=== PATIENT | female | born 1935 | race Caucasian/White ===

== ENCOUNTER → 2022-01-24 | Outpatient (CLI) | payer OTHER ==
[~2022-01-24] MED LIST: ACID REDUCER 1150 MG; ASPI81CH; ATEN25; CELE100; CLOB.05TC; Excedrin Extra1 EACH; FISH1000; HYDCHL25; Hair, Skin & N1 EACH; LEVSOD50; LIOT25; METTREX2.5; TIMDOROPSO
[2022-01-24 18:00] LABS: BASOPHILS ABSOLUTE AUTO 0.03 K/mm3 (0.00-0.23); BASOPHILS PERCENT AUTO 0 % (0-2); EOSINOPHILS ABSOLUTE AUTO 0.21 K/mm3 (0.00-0.68); EOSINOPHILS PERCENT AUTO 3 % (0-6); Hematocrit 44.8 % (33.0-51.0); Hemoglobin 14.6 g/dL (11.5-16.0); IMMATURE GRAN ABSOLUTE AUTO 0.03 K/mm3 (0.00-0.10); IMMATURE GRAN PERCENT AUTO 0 % (0-1); LYMPHOCYTES ABSOLUTE AUTO 1.78 K/mm3 (0.84-5.20); LYMPHOCYTES PERCENT AUTO 26 % (21-46); MONOCYTES ABSOLUTE AUTO 0.55 K/mm3 (0.16-1.47); MONOCYTES PERCENT AUTO 8 % (4-13); Mean Corpuscular HGB 29.4 pg (26.0-34.0); Mean Corpuscular HGB Conc 32.6 g/dL (31.5-36.5); Mean Corpuscular Volume 90 fL (80-100); NEUTROPHILS ABSOLUTE AUTO 4.27 K/mm3 (1.96-9.15); NEUTROPHILS PERCENT AUTO 62 % (41-73); Platelet Count 315 K/mm3 (150-400); RDW Coefficient Variation 15.6 % (11.7-14.2); RDW Standard Deviation 50.5 fL (35.1-46.3); Red Blood Cell Count 4.96 M/mm3 (3.80-5.20); White Blood Cell Count 6.87 K/mm3 (4.00-11.30)
[2022-01-24 19:23] LABS: Alanine Aminotransfer (ALT/SGP 29 U/L (12-78); Albumin, Blood 3.5 g/dL (3.4-5.0); Albumin/Globulin Ratio 0.9 (0.8-1.8); Alk Phos 95 U/L (50-136); Anion Gap 8 mmol/L (6-16); Aspartate Aminotrans (AST/SGOT 23 U/L (12-37); Bilirubin, Total 0.7 mg/dL (0.1-1.0); Blood Urea Nitrogen 26 mg/dL (8-24); Bun/Creatinine Ratio 28.2 (12.0-20.0); CHOL/HDL RATIO 5.5; CO2, Blood 24 mmol/L (21-32); Calcium, Blood 9.9 mg/dL (8.5-10.1); Chloride, Blood 111 mmol/L (98-108); Cholesterol 270 mg/dL (50-200); Creatinine, Blood 0.92 mg/dL (0.40-1.00); Globulin, Blood 4.1 g/dL (2.2-4.0); Glomerular Filtration Rate 58 (60-); Glucose, Blood 103 mg/dL (70-99); HDL Cholesterol 49 mg/dL (>39); LDL/HDL RATIO 3.8; Low Density Lipoprotein Chol 184 mg/dL (0-110); Sodium, Blood 143 mmol/L (136-145); Thyroid Stimulating Hormone 0.988 uIU/mL (0.360-4.800); Total Protein, Blood 7.6 g/dL (6.4-8.2); Triglycerides 185 mg/dL (30-160); Very Low Density Lipoprot Chol 37 mg/dL (6-32)
== END | disposition home or self-care (01) ==
LOC: LAB SHORT 14:15
PROVIDERS: Internal Medicine
DX: I77.810 Thoracic aortic ectasia (principal); E03.9 Hypothyroidism, unspecified; L40.50 Arthropathic psoriasis, unspecified; E55.9 Vitamin D deficiency, unspecified; R73.9 Hyperglycemia, unspecified; E78.00 Pure hypercholesterolemia, unspecified
CPT/HCPCS: 80053; 80061; 82306; 83036; 84443; 85025

== ENCOUNTER → 2022-10-01 | Outpatient (CLI) | payer OTHER | LOC: LAB SHORT 16:28 → LAB 16:28 | DX: L08.0 Pyoderma (principal) | CPT/HCPCS: 87070; 87205 ==

== ENCOUNTER 2023-05-30 10:12 | Emergency (ER) | payer OTHER ==
[~2023-05-30] VITALS: Ht 165.1 cm; Wt 77.1 kg
[2023-05-30 10:36] VITALS: BP 167/111
== END 2023-05-30 12:12 | disposition home or self-care (01) ==
LOC: ER 10:12
DX: S09.90XA Unspecified injury of head, initial encounter (principal); M25.551 Pain in right hip; W18.39XA Other fall on same level, initial encounter; Z88.8 Allergy status to other drugs, medicaments and biological substances; Z79.899 Other long term (current) drug therapy; Z79.82 Long term (current) use of aspirin; Z87.891 Personal history of nicotine dependence
CPT/HCPCS: 70450; 73502

== ENCOUNTER → 2023-08-22 | Outpatient (CLI) | payer OTHER ==
[2023-08-22 15:22] LABS: Source, Urine Voided
[2023-08-22 15:34] LABS: Bilirubin, Urine Neg (Neg); Blood, Urine Neg (Neg); Color, Urine Yellow (P-Yellow); Glucose Qualitative, Urine Neg (Neg); Ketones, Urine 2+ (Neg); Leukocyte Esterase, Urine Neg (Neg); Nitrite, Urine Neg (Neg); Protein, Urine Neg (Neg); Urobilinogen, Urine NORM (Normal)
[2023-08-22 16:06] LABS: Appearance, Urine Hazy (Clear)
[2023-08-22 16:07] LABS: Red Blood Cells, Urine 0-2 /hpf (0-2); White Blood Cells, Urine 0-2 /hpf (0-5)
[2023-08-22 16:08] LABS: Amorphous Light (0-Heavy); Bacteria Mod /hpf; Calcium Oxalate Crystals Mod /hpf; Hyaline Casts 0-2 /lpf (0-2); Mucus Light (0-Heavy); Squamous Epithelial Cells Rare /hpf (Few)
== END ==
LOC: LAB SHORT 12:15 → LAB 12:15
PROVIDERS: Internal Medicine
DX: R39.15 Urgency of urination (principal)
CPT/HCPCS: 81001; 87086

== ENCOUNTER → 2023-09-04 | Outpatient (CLI) | payer OTHER ==
[2023-09-04 19:06] LABS: Adenovirus F 40/41 Not Detected (NOT DETECT); Astrovirus Not Detected (NOT DETECT); Campylobacter Sp Not Detected (NOT DETECT); Cryptosporidium Not Detected (NOT DETECT); Cyclospora Cayetanensis Not Detected (NOT DETECT); E. Coli O157 Not Detected (NOT DETECT); Entamoeba Histolytica Not Detected (NOT DETECT); Enteroaggregative E. coli-EAEC Not Detected (NOT DETECT); Enteropathogenic E. coli-EPEC Not Detected (NOT DETECT); Enterotoxigenic E. coli-ETEC Not Detected (NOT DETECT); Giardia Lamblia Not Detected (NOT DETECT); Norovirus GI/GII Not Detected (NOT DETECT); Plesiomonas Shigelloides Not Detected (NOT DETECT); Rotavirus A Not Detected (NOT DETECT); Salmonella Sp Not Detected (NOT DETECT); Sapovirus Not Detected (NOT DETECT); Shiga Toxin-prod E. coli-STEC Not Detected (NOT DETECT); Shigella/Enteroin E. coli-EIEC Not Detected (NOT DETECT); Vibrio Cholerae Not Detected (NOT DETECT); Vibrio Sp Not Detected (NOT DETECT); Yersinia Enterocolitica Not Detected (NOT DETECT)
== END | disposition home or self-care (01) ==
LOC: LAB 14:10 → LAB SHORT 14:10
PROVIDERS: Internal Medicine
DX: I10 Essential (primary) hypertension (principal); R19.7 Diarrhea, unspecified; R73.9 Hyperglycemia, unspecified
CPT/HCPCS: 87507

== ENCOUNTER 2023-09-16 12:27 | Observation (INO) | payer OTHER ==
[~2023-09-16] VITALS: Ht 157.5 cm; Wt 98.8 kg
[~2023-09-16 12:27] MED LIST changes: +AMOCLA875 PO; -ASPI81CH; +ASPI81CH PO; -ATEN25; +ATEN25 PO; -CELE100; +CELE100 PO; +LEVSOD25 PO; -LEVSOD50; -LIOT25; +LIOT25 PO; -METTREX2.5; +METTREX2.5 PO
[2023-09-16 13:38] LABS: Albumin, Blood 2.5 g/dL (3.4-5.0); Albumin/Globulin Ratio 0.6 (0.8-1.8); Bilirubin, Total 0.6 mg/dL (0.1-1.0); Bun/Creatinine Ratio 17.4 (12.0-20.0); Calcium, Blood 9.6 mg/dL (8.5-10.1); Creatinine, Blood 0.86 mg/dL (0.40-1.00); Globulin, Blood 3.9 g/dL (2.2-4.0); Potassium, Blood 3.6 mmol/L (3.5-5.5); Total Protein, Blood 6.4 g/dL (6.4-8.2)
[2023-09-16 13:48] LABS: BASOPHILS ABSOLUTE AUTO 0.04 K/mm3 (0.00-0.23); BASOPHILS PERCENT AUTO 0 % (0-2); EOSINOPHILS ABSOLUTE AUTO 0.05 K/mm3 (0.00-0.68); EOSINOPHILS PERCENT AUTO 0 % (0-6); Hematocrit 42.2 % (33.0-51.0); Hemoglobin 14.5 g/dL (11.5-16.0); IMMATURE GRAN ABSOLUTE AUTO 0.12 K/mm3 (0.00-0.10); IMMATURE GRAN PERCENT AUTO 1 % (0-1); LYMPHOCYTES ABSOLUTE AUTO 1.61 K/mm3 (0.84-5.20); LYMPHOCYTES PERCENT AUTO 9 % (21-46); MONOCYTES ABSOLUTE AUTO 0.41 K/mm3 (0.16-1.47); MONOCYTES PERCENT AUTO 2 % (4-13); Mean Corpuscular HGB 28.3 pg (26.0-34.0); Mean Corpuscular HGB Conc 34.4 g/dL (31.5-36.5); Mean Corpuscular Volume 82 fL (80-100); NEUTROPHILS ABSOLUTE AUTO 15.22 K/mm3 (1.96-9.15); NEUTROPHILS PERCENT AUTO 87 % (41-73); Platelet Count 282 K/mm3 (150-400); RDW Coefficient Variation 17.4 % (11.7-14.2); RDW Standard Deviation 50.7 fL (35.1-46.3); Red Blood Cell Count 5.12 M/mm3 (3.80-5.20); White Blood Cell Count 17.45 K/mm3 (4.00-11.30)
[2023-09-16 18:18] LABS: Source, Urine Clean Catch
[2023-09-16 18:25] LABS: Appearance, Urine Hazy (Clear); Bilirubin, Urine Neg (Neg); Blood, Urine 1+ (Neg); Color, Urine Yellow (P-Yellow); Glucose Qualitative, Urine Neg (Neg); Ketones, Urine Neg (Neg); Leukocyte Esterase, Urine Neg (Neg); Nitrite, Urine Neg (Neg); Protein, Urine 2+ (Neg); Urobilinogen, Urine NORM (Normal)
[2023-09-16 18:39] LABS: Bacteria Rare /hpf; Calcium Oxalate Crystals Mod /hpf; Red Blood Cells, Urine 0-2 /hpf (0-2); Squamous Epithelial Cells Many /hpf (Few); White Blood Cells, Urine 0-2 /hpf (0-5)
[2023-09-16 20:13] VITALS: BP 114/73
[2023-09-16] MEDS ORDERED: FURO20 PO (21:03)
[2023-09-16] MEDS ORDERED: ONDA4 PO (21:12)
--- NOTE | 2023-09-17 04:32 | NUR ---
SHIFT SUMMARY NO ACUTE CHANGES T/O NIGHT. IVF INFUSING PER ORDERS. PT DOES GET SOB WITH EXERTION, BUT RECOVERS QUICKLY. SATS STABLE ON RA. PUREWICK IN PLACE FOR URINARY URGENCY AND ATTENDS IN PLACE FOR MILD INCONTINENCE. PLAN FOR PHYSICAL THERAPY EVAL TODAY. CALL LIGHT WITHIN REACH.
[2023-09-17 05:38] VITALS: BP 119/85
--- NOTE | 2023-09-17 05:46 | NUR ---
PT BECAME SOB AFTER REPOSITIONING. NOTED TO BE TACHYPNIC AND HAVING A HARD TIME CATCHING HER BREATH. O2 SATS CHECKED AND PT DESATTING TO 88%. 2L 02 VIA NC PLACED AND PT SATS UP TO 95%. PT TACHYPNEA IMPROVING AND PT REPORTS FEELING BETTER. WILL CONT TO MONITOR RESPIRATORY STATUS. NO URINE PRESENT IN PURE WICK AND ATTENDS DRY. SPOKE WITH SUPPLY CHAIN ASSOCIATE ABOUT BLADDER SCANNING PT.
[2023-09-17 06:42] LABS: Hematocrit 34.6 % (33.0-51.0); Hemoglobin 11.7 g/dL (11.5-16.0); Mean Corpuscular HGB 28.1 pg (26.0-34.0); Mean Corpuscular HGB Conc 33.8 g/dL (31.5-36.5); Mean Corpuscular Volume 83 fL (80-100); Mean Platelet Volume 9.9 fL (9.1-12.4); Platelet Count 265 K/mm3 (150-400); RDW Coefficient Variation 17.2 % (11.7-14.2); RDW Standard Deviation 51.4 fL (35.1-46.3); Red Blood Cell Count 4.17 M/mm3 (3.80-5.20); White Blood Cell Count 18.57 K/mm3 (4.00-11.30)
[2023-09-17 07:13] VITALS: BP 126/94
[2023-09-17 07:16] LABS: Bun/Creatinine Ratio 20.1 (12.0-20.0); Calcium, Blood 8.7 mg/dL (8.5-10.1); Creatinine, Blood 0.8 mg/dL (0.40-1.00); Potassium, Blood 3.4 mmol/L (3.5-5.5)
[2023-09-17 15:22] VITALS: BP 135/110
--- NOTE | 2023-09-17 19:42 | NUR ---
SHIFT SUMMARY PT UP TO COMMODE SEVERAL TIMES TODAY WITH URINARY URGENCY. PVR THIS EVENING AT 24ML. FAMILY AT BEDSIDE MOST OF DAY. HAD A BM AFTER LUNCH. PT REPORTED ONLY AFTER DAUGHTER ASKED IF HER STOMACH STILL BOTHERED HER THAT IT HURTS MOSTLY AFTER MEALS FOR A PERIOD OF TIME.
[2023-09-17 20:03] VITALS: BP 110/84
[2023-09-18 03:35] VITALS: BP 159/97
--- NOTE | 2023-09-18 05:41 | NUR ---
SHIFT SUMMARY 88 YR F ADMITTED ON 09/16/23 FOR PULMONARY EMBOLISM. DNR. NO ACUTE CHANGES THIS SHIFT. PT IS UP FREQUENTLY TO THE BSC DUE TO URINARY URGENCY. SHE HAS HAD NO C/O PAIN OR DISCOMFORT THIS SHIFT. SHE IS CURRENTLY ON 1 L O2 BY TX.
[2023-09-18 06:52] LABS: Bun/Creatinine Ratio 20.3 (12.0-20.0); Calcium, Blood 9.5 mg/dL (8.5-10.1); Creatinine, Blood 0.74 mg/dL (0.40-1.00); Potassium, Blood 3.8 mmol/L (3.5-5.5)
[2023-09-18 08:02] VITALS: BP 150/109
[2023-09-18] MEDS ORDERED: ELIQUIS5 M2 PO (12:47)
[2023-09-18] MEDS ORDERED: VISBIOME 112.51 EACH PO (12:48)
[2023-09-18] MEDS ORDERED: HYDCHL25 PO (12:48)
[2023-09-18] MEDS ORDERED: POTA10T PO (12:49)
--- NOTE | 2023-09-18 16:25 | NUR ---
PT DISCHARGED FROM THE UNIT. IV REMOVED. DISCHARGE INSTRUCTIONS REVIEWED. MEDICATIONS FAXED TO PHARMACY. INSTRUCTED ON FOLLOW UP APTS. PT LEFT UNIT VIA WC. FAMILY TO DRIVE HOME. HOME HEALTH WILL FOLLOW UP
== END 2023-09-18 15:30 | disposition home health service (06) ==
LOC: ER 12:27 → ERHOLD 12:28 → MEDS 12:28
PROVIDERS: Emergency Medicine; Internal Medicine; ADMIT Internal Medicine
DX: K57.92 Diverticulitis of intestine, part unspecified, without perforation or abscess without bleeding (principal); I26.99 Other pulmonary embolism without acute cor pulmonale; I48.91 Unspecified atrial fibrillation; I35.0 Nonrheumatic aortic (valve) stenosis; E66.01 Morbid (severe) obesity due to excess calories; I10 Essential (primary) hypertension; E03.9 Hypothyroidism, unspecified
CPT/HCPCS: 36415; 74177; 80048; 80053; 81001; 84443; 85025; 85027; 93005; 93010; 93308; 93321; 94761; 96361; 96374-59; 96375; 96376; 97116; 97162; 97530; 99285-25; A9270; G0378; J2270; J2405; J3480; J7030; Q9967

== ENCOUNTER 2023-12-15 11:08 | Inpatient (IN) | payer OTHER ==
[~2023-12-15] VITALS: Ht 157.5 cm; Wt 92.0 kg
[~2023-12-15 11:08] MED LIST changes: +ELIQUIS5 M2 PO; +FISH OIL 1,0001 EA10 PO; +FOLIC ACID0.4 MG PO; +FURO20 PO; +HYDCHL25 PO; +MIRT15 PO; +OMEP20ER PO; +ONDA4 PO; +POTA10T PO; -TIMDOROPSO; +TIMDOROPSO BOTHEYES; +VISBIOME 112.51 EACH PO; +VITAMIN D31000 UNI1 PO
[2023-12-15] MEDS ORDERED: Ondansetron HCl 2 MG / ML 2ML Vial IV ONE (11:35)
[2023-12-15] MEDS ORDERED: NS 1,000 ML IV SCH (11:35)
[2023-12-15 11:54] LABS: BASOPHILS ABSOLUTE AUTO 0.05 K/mm3 (0.00-0.23); BASOPHILS PERCENT AUTO 0 % (0-2); EOSINOPHILS ABSOLUTE AUTO 0.05 K/mm3 (0.00-0.68); EOSINOPHILS PERCENT AUTO 0 % (0-6); Hematocrit 33.6 % (33.0-51.0); Hemoglobin 10.6 g/dL (11.5-16.0); IMMATURE GRAN ABSOLUTE AUTO 0.22 K/mm3 (0.00-0.10); IMMATURE GRAN PERCENT AUTO 1 % (0-1); LYMPHOCYTES ABSOLUTE AUTO 1.87 K/mm3 (0.84-5.20); LYMPHOCYTES PERCENT AUTO 11 % (21-46); MONOCYTES ABSOLUTE AUTO 0.94 K/mm3 (0.16-1.47); MONOCYTES PERCENT AUTO 6 % (4-13); Mean Corpuscular HGB 27.8 pg (26.0-34.0); Mean Corpuscular HGB Conc 31.5 g/dL (31.5-36.5); Mean Corpuscular Volume 88 fL (80-100); Mean Platelet Volume 9.2 fL (9.1-12.4); NEUTROPHILS ABSOLUTE AUTO 14.11 K/mm3 (1.96-9.15); NEUTROPHILS PERCENT AUTO 82 % (41-73); Platelet Count 568 K/mm3 (150-400); RDW Coefficient Variation 18.4 % (11.7-14.2); RDW Standard Deviation 56.6 fL (35.1-46.3); Red Blood Cell Count 3.81 M/mm3 (3.80-5.20); White Blood Cell Count 17.24 K/mm3 (4.00-11.30)
[2023-12-15 12:14] LABS: Albumin, Blood 2.1 g/dL (3.4-5.0); Albumin/Globulin Ratio 0.4 (0.8-1.8); Bilirubin, Total 0.6 mg/dL (0.1-1.0); Calcium, Blood 9.7 mg/dL (8.5-10.1); Creatinine, Blood 0.9 mg/dL (0.40-1.00); Globulin, Blood 4.7 g/dL (2.2-4.0); Potassium, Blood 3.7 mmol/L (3.5-5.5); Total Protein, Blood 6.8 g/dL (6.4-8.2)
[2023-12-15] MEDS ORDERED: Piperacillin/Tazobactam Sod 3.375 GM in NS 50 ML IV SCH (15:00)
[2023-12-15] MEDS ORDERED: Lactated Ringer's 1,000 ML IV SCH ×2 (15:05→16:25)
[2023-12-15] MEDS ORDERED: FLU VACC QS2023-24(6MOS UP)/PF 60 MCG/0.5 ML SYRINGE IM SCH (15:05)
[2023-12-15] MEDS ORDERED: NS 1,000 ML IV ONE (16:05)
[2023-12-15 16:45] LABS: Hematocrit 36.7 % (33.0-51.0); Hemoglobin 11.5 g/dL (11.5-16.0); Mean Corpuscular HGB 27.7 pg (26.0-34.0); Mean Corpuscular HGB Conc 31.3 g/dL (31.5-36.5); Mean Corpuscular Volume 88 fL (80-100); Mean Platelet Volume 8.6 fL (9.1-12.4); NRBC ABSOLUTE 0.03 K/mm3 (0.00-0.02); NRBC Auto 0.2 /100 WBC (0.0-0.2); Platelet Count 457 K/mm3 (150-400); RDW Coefficient Variation 18.6 % (11.7-14.2); RDW Standard Deviation 57.7 fL (35.1-46.3); Red Blood Cell Count 4.15 M/mm3 (3.80-5.20); White Blood Cell Count 14.09 K/mm3 (4.00-11.30)
[2023-12-15 17:03] LABS: Albumin, Blood 1.7 g/dL (3.4-5.0); Albumin/Globulin Ratio 0.4 (0.8-1.8); Bilirubin, Total 0.3 mg/dL (0.1-1.0); Bun/Creatinine Ratio 10.6 (12.0-20.0); Calcium, Blood 8.6 mg/dL (8.5-10.1); Creatinine, Blood 0.85 mg/dL (0.40-1.00); Potassium, Blood 3.6 mmol/L (3.5-5.5); Total Protein, Blood 5.7 g/dL (6.4-8.2)
[2023-12-15 17:05] LABS: BAND PERCENT MAN 13 % (0-8); BASOPHILS ABSOLUTE MAN 0.14 K/mm3 (0.00-0.23); BASOPHILS PERCENT MAN 1 % (0-2); EOSINOPHILS PERCENT MAN 0 % (0-6); LYMPHOCYTES ABSOLUTE MAN 2.39 K/mm3 (0.84-5.20); LYMPHOCYTES PERCENT MAN 17 % (21-46); METAMYELOCYTE ABSOLUTE MAN 0.56 K/mm3 (0.00-0.00); METAMYELOCYTE PERCENT MAN 4 % (0-0); MONOCYTES PERCENT MAN 0 % (4-13); MYELOCYTE ABSOLUTE MAN 0.28 K/mm3 (0.00-0.00); MYELOCYTE PERCENT MAN 2 % (0-0); SEG NEUTROPHILS PERCENT MAN 63 % (41-73); TOTAL CELLS COUNTED 100
[2023-12-15] MEDS ORDERED: Lactated Ringer's 1,000 ML IV ONE ×2 (18:06→19:32)
[2023-12-15 20:04] LABS: Base Excess Venous -5.6 mmol/L; Bicarbonate Venous 19.6 mmol/L (24.0-30.0); PCO2 Venous 38.2 mmHg (38-42); pH Blood Venous 7.33 (7.34-7.37)
[2023-12-15] MEDS ORDERED: Potassium Chloride 10 Meq Tablet SA PO SCH (21:00)
[2023-12-15] MEDS ORDERED: Mirtazapine 15 MG Tab PO SCH (21:00)
[2023-12-15] MEDS ORDERED: Albumin (Human) 25gm/100ml 100 ML IV SCH (21:00)
[2023-12-15] MEDS ORDERED: Omega-3 Acid Ethyl Esters 1,000 MG CAP PO SCH (21:00)
[2023-12-16] VITALS (78 sets, daily range): BP systolic 73–140; BP diastolic 34–93
[2023-12-16] MEDS ORDERED: NS 250 ML IV PRN (02:40)
--- NOTE | 2023-12-16 03:07 | NUR ---
ASSUMPTION OF CARE REPORT RECEIVED FROM AUTHOR AGENT. PT TO ICU VIA HOSPITAL BED, TRANSFERRED TO CIU BED VIA SLIDER SHEET. PT ALERT AND ORIENTED, ABLE TO TELL HER NAME , WHERE SHE IS AND THE YEAR. PT CONFUSED AT TIMES, AND POOR HISTORIAN. MOVES ALL EXTREMITIES EQUALLY BILATERALLY, ABLE TO MEK HER NEEDS KNOWN. HR 60'S SINUS, LEVOPHED INFUSING AT 11MCG/MIN AT TIME OF ARRIVAL, CURRENTLY INFUSING AT 8MCG/MIN TO MAINTAIN MAP .65, SEE FLOWSHEET FOR TITRATIONS. PT ON RA, OXYGEN SATURATION >95%, PT STATES THAT SHE WEARS CPAP AT NIGHT, FAMILY TO BRING IN HOME MACHINE IN THE AM. LUNG SOUNDS CLEAR THROUGHOUT. ABDOMEN SOFT AND ROUND, PT STATES SHE HAS OCCASIONAL PAIN IN ABDOMEN, NOT CONSTANT. BOWEL TONES HYPOACTIVE. PUREWICK AND ATTENDS IN PALCE. PIV TO LAC AND RAC. DR. DENNIS CALLED DUE TO INITIAL LEVOPHED DOSE OF 11MCG/MIN THROUGH PIV. CENTRAL LINE PLACED IN THE RIJ, VERIFIED WITH X-RAY. BED IN LOWEST POSIITON, CALL LIGHT WIHTIN REACH. CARE CONTINUES.
[2023-12-16 04:31] LABS: Albumin, Blood 2.3 g/dL (3.4-5.0); Albumin/Globulin Ratio 0.8 (0.8-1.8); Bilirubin, Total 0.5 mg/dL (0.1-1.0); Bun/Creatinine Ratio 13.2 (12.0-20.0); Calcium, Blood 8.4 mg/dL (8.5-10.1); Creatinine, Blood 0.84 mg/dL (0.40-1.00); Globulin, Blood 2.9 g/dL (2.2-4.0); Potassium, Blood 3.6 mmol/L (3.5-5.5); Total Protein, Blood 5.2 g/dL (6.4-8.2)
[2023-12-16] MEDS ORDERED: Pantoprazole Sodium 40 MG Injection IV SCH (06:00)
[2023-12-16] MEDS ORDERED: Levothyroxine Sodium 0.05 MG Tab PO SCH (06:00)
--- NOTE | 2023-12-16 06:14 | NUR ---
SHIFT SUMMARY PT RESTING IN BED, SLEEPING BUT AROUSABLE, PT CONFUSED AT TIMES. PT FOLLOWS COMMANDS, ABLE TO MAKE NEEDS KNOWN, MOVES ALL EXTREMITIES EQUALLY BILATERALLY. HR 50-60 SINUS, LEVOPHED INFUISNG AT 2MCG/MIN TO MAINTAIN MAP >65. PT PLACED ON 2LPM VIA NC WHILE SLEEPING TO MAINTAIN OXYGEN SATURATION > 92%. PT WEARS CPAP AT HOME, FAMILY TO BRING CPAP MASK IN THE AM. ABDOMEN SOFT, TENDER AT TIMES, NG TUBE IN PLACE TO RIGHT NARES SET TO LIS WITH MINIMAL GREEN/BROWN OUTPUT. PUREWICK AND ATTENDS IN PLACE. RIJ IN PLACE WITH LEVOPHED AND NS TKO INFUSING. PIV TO LAC AND RAC SL. BED IN LOWEST POSITION, CALL LIGHT WIHTIN REACH. CARE CONTINUES.
[2023-12-16 06:43] LABS: BASOPHILS ABSOLUTE AUTO 0.06 K/mm3 (0.00-0.23); BASOPHILS PERCENT AUTO 0 % (0-2); EOSINOPHILS PERCENT AUTO 0 % (0-6); Hematocrit 25.9 % (33.0-51.0); Hemoglobin 8.3 g/dL (11.5-16.0); IMMATURE GRAN ABSOLUTE AUTO 0.35 K/mm3 (0.00-0.10); IMMATURE GRAN PERCENT AUTO 2 % (0-1); LYMPHOCYTES PERCENT AUTO 8 % (21-46); MONOCYTES ABSOLUTE AUTO 0.52 K/mm3 (0.16-1.47); MONOCYTES PERCENT AUTO 2 % (4-13); Mean Corpuscular HGB 28.2 pg (26.0-34.0); Mean Corpuscular Volume 88 fL (80-100); NEUTROPHILS PERCENT AUTO 88 % (41-73); Platelet Count 364 K/mm3 (150-400); RDW Coefficient Variation 18.5 % (11.7-14.2); RDW Standard Deviation 57.1 fL (35.1-46.3); Red Blood Cell Count 2.94 M/mm3 (3.80-5.20); White Blood Cell Count 23.73 K/mm3 (4.00-11.30)
--- NOTE | 2023-12-16 07:00 | NUR ---
CARE ASSUMPTION DURING BEDSIDE SHIFT REPORT W JANAE HART THE PT IS RESTING COMFORTABLY IN BED WEARING 2L NC. MONITOR SHOWING SB 50'S. BP STABLE W MAP >65 ON LEVOPHED GTT INFUSING AT 2 MCG/MIN. PT AFEBRILE. 0800- PT DENYING ANY PAIN OR NAUSEA. PT IS AXO X3 W SOME SLIGHT CONFUSION UPON AWAKING. PT'S DAUGHTERS AT BEDSIDE. PT NPO FOR POSSIBLE PROCEDURE. 914- DR. MENDEZ AT BEDSIDE W DR. LOVE CONSULTING THE PT AND HER FAMILY ABOUT SURGICAL OPTIONS. PT SLEEPING COMFORTABLY AT THIS TIME.
[2023-12-16] MEDS ORDERED: Lactated Ringer's 1,000 ML IV SCH ×4 (07:05→17:40)
[2023-12-16] MEDS ORDERED: Atenolol 25 MG Tab PO SCH (09:00)
[2023-12-16] MEDS ORDERED: Folic Acid 400 MCG TAB PO SCH (09:00)
[2023-12-16] MEDS ORDERED: Cholecalciferol 1000 Unit Tablet (=25MCG) PO SCH (09:00)
--- NOTE | 2023-12-16 11:59 | NUR ---
PT IN ICU 8, SEE ELEVATOR CONSTRUCTOR SUPERVISORDRUM SANDER OFFBEARER NOTES. PT IS CURRENTLY ALERT AND ORIENTED AND WANTS TO PROCEED W/ SURGERY. PT'S DAUGHTER ROBERT NEWMAN IS POA AND SIGNED CONSENT. Patient confirms NPO status and agrees with scheduled surgery. History, Chart, Medications and Allergies reviewed before start of procedure.Pre-Op teaching done. Pt verbalizes understanding.
[2023-12-16] MEDS ORDERED: propofoL 20 ML IV ONE (12:25)
[2023-12-16] MEDS ORDERED: FentaNYL Citrate 50 MCG/ML 5 ML Injection ONE (12:25)
[2023-12-16] MEDS ORDERED: Bupivacaine 0.5% HCl 5 MG/ML 30MLVIAL ONE (13:08)
[2023-12-16] MEDS ORDERED: Rocuronium Bromide 10 MG/ML 5ML Injection IV ONE ×2 (13:21→13:48)
[2023-12-16] MEDS ORDERED: Dexamethasone Sod Phos 10 MG/ML 1ML VIAL ONE (13:21)
[2023-12-16] MEDS ORDERED: Ondansetron HCl 2 MG / ML 2ML Vial ONE (13:21)
[2023-12-16] MEDS ORDERED: FentaNYL Citrate 50 MCG/ML 2 ML Injection ONE (15:56)
[2023-12-16] MEDS ORDERED: Piperacillin/Tazobactam Sod 3.375 GM in NS 50 ML IV SCH (16:00)
[2023-12-16] MEDS ORDERED: Sugammadex Sodium 200 MG/2ML SDV (100 MG/ML) ONE (16:03)
[2023-12-16] MEDS ORDERED: FentaNYL Citrate 50 MCG/ML 2 ML Injection IV PRN (16:30)
[2023-12-16] MEDS ORDERED: Ondansetron HCl 2 MG / ML 2ML Vial IV PRN (16:30)
--- NOTE | 2023-12-16 16:50 | NUR ---
RETURNED FROM OR PT BACK FROM OR W ACS AND COUPON REDEMPTION CLERK AT BEDSIDE. PT AWKAE BUT NOT RESPONDING VERBALLY SHE IS IN W SHALLOW TIGHT RESPIRATIONS. PT GIVEN IV FENTANYL AND SHE RELAXERD TAKING SLOWER DEEPER RESPIRATIONS. MONITOR SHOWING ST 90'S. BP WNL W SBP MIN THE 130'S SO LEVOPHED GTT PLACED ON SB. PT'S STOMA IS PINK W OSTOMY APPLIANCE IN PLACE. MIDLINE INCISION HAS ROCHELLE DRESSING THAT C/D/I. SPO2 >94% W 15L NONREBREATHER. FAMIL;Y BROUGHT TO BEDSIDE.
[2023-12-16 17:03] LABS: Hemoglobin 10.7 g/dL (11.5-16.0); Mean Corpuscular HGB 28.5 pg (26.0-34.0); Mean Corpuscular HGB Conc 32.4 g/dL (31.5-36.5); Mean Corpuscular Volume 88 fL (80-100); Mean Platelet Volume 9.1 fL (9.1-12.4); NRBC ABSOLUTE 0.02 K/mm3 (0.00-0.02); Platelet Count 470 K/mm3 (150-400); RDW Coefficient Variation 18.7 % (11.7-14.2); RDW Standard Deviation 57.6 fL (35.1-46.3); Red Blood Cell Count 3.76 M/mm3 (3.80-5.20); White Blood Cell Count 40.95 K/mm3 (4.00-11.30)
--- NOTE | 2023-12-16 17:08 | NUR ---
PAIN CONTROL PT GIVEN FENATYL W MINIMAL PAIN RELIEF. PROVIDER CONTACTED AGAIN AND ORDERS FOR TORADOL PENDING.
[2023-12-16] MEDS ORDERED: Ketorolac Tromethamine 15mg Vial IV PRN (17:20)
[2023-12-16 17:23] LABS: Magnesium, Blood 2.1 mg/dL (1.6-2.4)
[2023-12-16 17:25] LABS: Albumin/Globulin Ratio 0.6 (0.8-1.8); BAND PERCENT MAN 5 % (0-8); BASOPHILS PERCENT MAN 0 % (0-2); Bilirubin, Total 0.4 mg/dL (0.1-1.0); Bun/Creatinine Ratio 14.3 (12.0-20.0); Calcium, Blood 8.4 mg/dL (8.5-10.1); Creatinine, Blood 0.91 mg/dL (0.40-1.00); EOSINOPHILS PERCENT MAN 0 % (0-6); Globulin, Blood 3.1 g/dL (2.2-4.0); LYMPHOCYTES ABSOLUTE MAN 3.68 K/mm3 (0.84-5.20); LYMPHOCYTES PERCENT MAN 9 % (21-46); MONOCYTES PERCENT MAN 1 % (4-13); NEUTROPHILS ABSOLUTE MAN 36.85 K/mm3 (1.96-9.15); Phosphorus, Blood 3.6 mg/dL (2.5-4.9); Potassium, Blood 3.9 mmol/L (3.5-5.5); SEG NEUTROPHILS PERCENT MAN 85 % (41-73); TOTAL CELLS COUNTED 100; Total Protein, Blood 5.1 g/dL (6.4-8.2)
--- NOTE | 2023-12-16 18:16 | NUR ---
"Spiritual Care Visit | Pt request Pt. has just returened to ICU after a surgery. Three daughters are present and welcome my visit. Facilitate a short life review. Daughters verbalize that the Pt. is a retired long time RN at [employer]. Pt. knows Father Bobby well. Prayed for the Pt. with the daughter's permission. Family verbalized gratitude for the spiritual care visit. Will remain available to the Pt."
[2023-12-16 18:50] LABS: Source, Urine Foley catheter
[2023-12-16 18:55] LABS: Appearance, Urine Hazy (Clear); Bilirubin, Urine Neg (Neg); Blood, Urine 4+ (Neg); Color, Urine Yellow (P-Yellow); Glucose Qualitative, Urine Neg (Neg); Ketones, Urine 1+ (Neg); Leukocyte Esterase, Urine Neg (Neg); Nitrite, Urine Neg (Neg); Protein, Urine 3+ (Neg); Specific Gravity, Urine 1.025 (1.003-1.022); Urobilinogen, Urine NORM (Normal)
--- NOTE | 2023-12-16 19:04 | NUR ---
DAY SHIFT SUMMARY PT BEGAN THE SHIFT AXO X3 COMMUNICATING APPROPRIATELY W STAFF BUT HAVING SOME SLIGGHT CONFUSION WHEN SHE INITIAL AWOKE FROM SLEEPING. PT WNET TO OR THIS SHIFT TO HAVE SIGMOID COLECTOMY AND NEW OSTOMY. PT RETURNED FROM OR VERY PAINFUL SO PROVIDER CONTACTED AND ORDERS FOR IV FENTANYL AND TORADOL WHICH RELIEVED HER SYMPTOMS. PT'S BP DROPPING ONCE BACK TO ICU SO LEVOPHED GTT TITRATED UP FROM 2 MCG/MIN TO 8 MCG/MIN. MONITOR SHOWING SR 60'S. SPO2 >92% ON 4L NC. OSTOMY AND MIDLINE DRESSING C/D/I. LCATIC ACID RESULTS COMING BACK AT 2.1 SO PROVIDER CONTACTED AND ORDER FOR LR AT 200ML/HR ORDERED. PT HAS CORTES CATHETER THAT IS PATENT AND DRAINING CLEAR YELLOW URINE. WILL REPORT TO ONCOMING HAILEY
[2023-12-16 19:11] LABS: Amorphous Light (0-Heavy); Bacteria Few /hpf; Calcium Oxalate Crystals Rare /hpf; Granular Casts 0-2 /lpf (0); Hyaline Casts 0-2 /lpf (0-2); Squamous Epithelial Cells Few /hpf (Few); Transitional Epithelial Cells Rare /hpf (0-Rare)
--- NOTE | 2023-12-16 19:30 | NUR ---
ASSUMPTION OF CARE BEDSIDE SHIFT REPORT RECEIVED FROM DAYSHIFT RN. PT RESTING IN BED, SLEEPING BUT AROUSABLE. PT ASNWERS QUESTIONS APPROPRIATELY, FOLLOWS COMAMDNS AND IS ABLE TO MAKE NEEDS KNOWN. PT MOVES ALL EXTREMITIES EQUALLY BILATERALLY. HR 60'S SINUS, LEVOPHED INFUSING AT 8MCG/MIN TO MAINTAIN MAP >65, SEE FLOWSHEET FOR TITRATIONS. PT WEARS CPAP AT NIGHT WHILE AT HOME, PT CURRENTLY ON 4L VIA NC DUE TO NOT WEARING CPAP. PT DENIES CP OR SOB. ROCHELLE DRESSING IN PLACE TO MIDLINE ABDOMEN WITH GOOD SUCTION, NO DRAINAGE NOTED. NEW COLOSTOMY WITH APPLIANCE IN PLACE TO LEFT ABDOMEN, NO OUTPUT NOTED AT TIME OF ASSESSMENT. PT COMPLAINING OF 3/10 PAIN, MEDICATED PER EMAR. CORTES IN APLCE PATENT DRAINING TO GRAVITY. PIV TO LAC AND RAC SL. CENTRAL LINE IN PLACE TO RIJ INFUSING. LR INFUSING AT 200MLS/HR. BED IN LOWEST POSITION, CALL LIGHT WITHIN REACH, CARE CONTINUES.
[2023-12-17] VITALS (92 sets, daily range): BP systolic 82–117; BP diastolic 52–77
--- NOTE | 2023-12-17 02:34 | NUR ---
PT UPDATE PT HAS HAD 75MLS OF URINE OUT SO FAR THIS SHIFT. BLADDER SCANNED PATIENT, NO URINE SHOWN. DISCUSSED THIS WITH CHARGE NURSE. CALLED AND SPOKE TO DR. DENNIS REGARDING PTS MINIMAL URINE OUTPUT. ORDER RECEIVED FOR NS AT 75MLS/HR. ABDOMEN SOFT, STOMA PINK WITH NO OUTPUT NOTED. PT CONTINUES ON LEVOPHED GTT AT 10MCG/MIN, MAP >65, SBP 80-90'S.
[2023-12-17] MEDS ORDERED: NS 1,000 ML IV SCH (02:45)
[2023-12-17 03:17] LABS: BASOPHILS ABSOLUTE AUTO 0.07 K/mm3 (0.00-0.23); BASOPHILS PERCENT AUTO 0 % (0-2); EOSINOPHILS PERCENT AUTO 0 % (0-6); Hematocrit 30.1 % (33.0-51.0); Hemoglobin 9.5 g/dL (11.5-16.0); IMMATURE GRAN ABSOLUTE AUTO 0.55 K/mm3 (0.00-0.10); IMMATURE GRAN PERCENT AUTO 2 % (0-1); LYMPHOCYTES ABSOLUTE AUTO 1.63 K/mm3 (0.84-5.20); LYMPHOCYTES PERCENT AUTO 5 % (21-46); MONOCYTES ABSOLUTE AUTO 0.55 K/mm3 (0.16-1.47); MONOCYTES PERCENT AUTO 2 % (4-13); Mean Corpuscular HGB 28.3 pg (26.0-34.0); Mean Corpuscular HGB Conc 31.6 g/dL (31.5-36.5); Mean Corpuscular Volume 90 fL (80-100); Mean Platelet Volume 9.2 fL (9.1-12.4); NEUTROPHILS ABSOLUTE AUTO 29.27 K/mm3 (1.96-9.15); NEUTROPHILS PERCENT AUTO 91 % (41-73); NRBC ABSOLUTE 0.02 K/mm3 (0.00-0.02); NRBC Auto 0.1 /100 WBC (0.0-0.2); Platelet Count 419 K/mm3 (150-400); RDW Standard Deviation 60.2 fL (35.1-46.3); Red Blood Cell Count 3.36 M/mm3 (3.80-5.20); White Blood Cell Count 32.07 K/mm3 (4.00-11.30)
[2023-12-17 03:41] LABS: Magnesium, Blood 1.7 mg/dL (1.6-2.4)
[2023-12-17 03:42] LABS: Albumin, Blood 1.8 g/dL (3.4-5.0); Albumin/Globulin Ratio 0.6 (0.8-1.8); Bilirubin, Total 0.4 mg/dL (0.1-1.0); Bun/Creatinine Ratio 12.8 (12.0-20.0); Calcium, Blood 7.7 mg/dL (8.5-10.1); Creatinine, Blood 1.25 mg/dL (0.40-1.00); Globulin, Blood 3.1 g/dL (2.2-4.0); Phosphorus, Blood 4.1 mg/dL (2.5-4.9); Total Protein, Blood 4.9 g/dL (6.4-8.2)
[2023-12-17] MEDS ORDERED: Lactated Ringer's 1,000 ML IV SCH ×2 (05:55→07:40)
--- NOTE | 2023-12-17 06:38 | NUR ---
PT UPDATE CALLED AND SPOKE WITH DR. MENDEZ REGARDING PT MINIMAL URINE OUTPUT AND GAVE UPDATE. ORDERS RECEIVED.
--- NOTE | 2023-12-17 06:39 | NUR ---
SHIFT SUMMARY PT RESTING IN BED, SLEEPING BUT AROUSABLE. PT MOVES ALL EXTREMITIES EQUALLY BILATERALLY, ANSWERS QUESTIONS APPROPRIATELY AND IS ABLE TO MAKE NEEDS KNOWN. HR 40-60'S SINUS, LEVOPHED INFUSING AT 10MCG/MIN TO MAINTAIN MAP >65, SEE FLOWSHEET FOR TITRATIONS. SBP 80-100'S. PT ON 4L NC AT NOC, PT SLEEPS WITH CPAP AT HOME, DECLINES HOSPITAL CPAP AND STATES THAT SHE WILL ASK HER FAMILY TO BRING IN HER HOME CPAP TODAY. LUNG SOUNDS CLEAR, DIMINISHED IN THE BASES. ABDOMEN SOFT AND TENDER. BOWEL TONES HYPOACTIVE IN ALL FOUR QUADRANTS. ROCHELLE DRESSING IN APLCE TO MIDLINE ABDOMEN WITH GOOD SUCTION, ONE SMALL AREA OF BLOOD NOTED TO ROCHELLE DRESSING OUTLINED IN [place]. CLOSOTOMY IN PALCE TO LEFT ABDOMEN WITH APPLIANCE IN PLACE. STOMA PINK, NO OUTPUT NOTED. CORTES IN PALCE PATENT WITH MINIMAL YELLOW OUTPUT THIS SHIFT, PROVIDER AWARE. CENTRAL LINE IN PALCE TO RIJ INFUSING, LR INFUSING AT 125MLS/HR, NS TKO ALSO INFUSING. PIV TO LAC AND RAC SL. PT HAS COMPLAINED OF MODERATE PAIN TO ABDOMEN, MEDICATED PER EMAR. BED IN LOWEST POSITION, CALL LIGTH WITHIN REACH. CARE CONTINUES.
[2023-12-17] MEDS ORDERED: HYDROmorphone HCl/Pf 1MG SYR IV PRN (07:50)
[2023-12-17] MEDS ORDERED: TPN Consult Notification XX ONE (12:15)
--- NOTE | 2023-12-17 13:23 | NUR ---
Spiritual Care Support. Pt. is awake in bed. Family are present and welcome my visit. Introduced myself to the Pt. as she was resting duing a previous visit. Pt. displayed evidence of being BARROW, but also aware and engaged. Informed Pt. and family that Father Bobby was planning to visit today. Family verbalized gratitude for the spiritual care support.
[2023-12-17] MEDS ORDERED: Parenteral Electolytes 40 ML,Potassium Phosphate Dibasic 30 MM,Multivitamins 10 ML,ZINC... IV SCH (17:00)
--- NOTE | 2023-12-17 18:19 | NUR ---
SUMMARY PT DROWSY BUT A/O X4. DENIES PAIN OR NAUSEA. DR. MENDEZ CAME BY TO SEE PT AND OK'D FOR NG TUBE TO BE REMOVED. REMOVED WITHOUT ANY ISSUES. ROCHELLE TO MIDLINE INCISION WITH GOOD SUCTION, ONLY SCANT AMT OF BLOOD WITHIN THE DRESSING. COLOSTOMY STOMA PINK, NO OUTPUT. TITRATING LEVOPHED FOR MAP GREATER THAN 65, SEE FLOWSHEET. POOR JaymeOMD AWARE. GOT A BAG OF LR AT 200ML/HR THIS AM THEN CONTINUED WITH 125ML/HR. PT WAS NOT INTERESTED IN PT/OT TODAY DUE TO BEING TIRED AND WANTING TO BE LEFT ALONE. PT AND FAMILY EXPRESS THEY WOULD LIKE INTERUPTIONS AT A MINIMUM TONIGHT TO PROVIDE REST. SUPPORTIVE FAMILY AT BEDSIDE MOST OF THE DAY. NO SIGN OF DISTRESS.
--- NOTE | 2023-12-17 20:38 | NUR ---
ASSUMPTION OF CARE: RECEIVED REPORT FROM FER HART. PT ALERT AND ORIENTED. ABLE TO ANSWER QUESTIONS AND MAKE NEEDS KNOWN. PT DENIES PAIN WHEN ASKED. PT ON 4L NC WITH SPO2 >95%. DENIES SOB. COMPOTYPE OPERATOR IN PLACE, SR WITH HR 60'S-70'S. LEVOPHED AT 6 MCG/MIN, TITRATED TO MAINTAIN MAP >65. DENIES CHEST PAIN OR PRESSURE. LR INFUSING AT 125 ML/HR. TPN INFUSING AT 75 ML/HR. COLOSTOMY INTACT WITH NO OUTPUT NOTED YET. ROCHELLE TO MIDLINE ABDOMEN INTACT. DRESSING C/D. GOOD SUCTION NOTED. CORTES IN PLACE, DRAINING YELLOW URINE TO GRAVITY. CENTRAL LINE TO RIJ, PATENT AND INFUSING. PIV INTACT AND SALINE LOCKED. PT ABLE TO REPOSITION WITH MINIMAL ASSIST. PT REQUESTS TO BE LEFT ALONE MUCH POSSIBLE TONIGHT TO ALLOW FOR SLEEP. CALL LIGHT IN REACH, BED LOW AND LOCKED.
[2023-12-18] VITALS (57 sets, daily range): BP systolic 74–114; BP diastolic 46–74
[2023-12-18 05:02] LABS: BASOPHILS ABSOLUTE AUTO 0.02 K/mm3 (0.00-0.23); BASOPHILS PERCENT AUTO 0 % (0-2); EOSINOPHILS ABSOLUTE AUTO 0.04 K/mm3 (0.00-0.68); EOSINOPHILS PERCENT AUTO 0 % (0-6); Hematocrit 22.4 % (33.0-51.0); Hemoglobin 7.1 g/dL (11.5-16.0); IMMATURE GRAN PERCENT AUTO 1 % (0-1); LYMPHOCYTES ABSOLUTE AUTO 1.24 K/mm3 (0.84-5.20); LYMPHOCYTES PERCENT AUTO 8 % (21-46); MONOCYTES PERCENT AUTO 5 % (4-13); Mean Corpuscular HGB 28.1 pg (26.0-34.0); Mean Corpuscular HGB Conc 31.7 g/dL (31.5-36.5); Mean Corpuscular Volume 89 fL (80-100); Mean Platelet Volume 9.3 fL (9.1-12.4); NEUTROPHILS ABSOLUTE AUTO 13.44 K/mm3 (1.96-9.15); NEUTROPHILS PERCENT AUTO 85 % (41-73); Platelet Count 292 K/mm3 (150-400); RDW Coefficient Variation 19.2 % (11.7-14.2); RDW Standard Deviation 59.9 fL (35.1-46.3); Red Blood Cell Count 2.53 M/mm3 (3.80-5.20); White Blood Cell Count 15.74 K/mm3 (4.00-11.30)
[2023-12-18 05:17] LABS: Alanine Aminotransfer (ALT/SGP 18 U/L (12-78); Albumin, Blood 1.6 g/dL (3.4-5.0); Albumin/Globulin Ratio 0.6 (0.8-1.8); Alk Phos 43 U/L (50-136); Anion Gap 1 mmol/L (6-16); Aspartate Aminotrans (AST/SGOT 13 U/L (12-37); Bilirubin, Total 0.2 mg/dL (0.1-1.0); Blood Urea Nitrogen 19 mg/dL (8-24); Bun/Creatinine Ratio 18.3 (12.0-20.0); CO2, Blood 26 mmol/L (21-32); Calcium, Blood 7.8 mg/dL (8.5-10.1); Chloride, Blood 114 mmol/L (98-108); Creatinine, Blood 1.04 mg/dL (0.40-1.00); Globulin, Blood 2.7 g/dL (2.2-4.0); Glomerular Filtration Rate 51 (60-); Glucose, Blood 158 mg/dL (70-99); Magnesium, Blood 1.8 mg/dL (1.6-2.4); Phosphorus, Blood 1.6 mg/dL (2.5-4.9); Potassium, Blood 3.6 mmol/L (3.5-5.5); Sodium, Blood 141 mmol/L (136-145); Total Protein, Blood 4.3 g/dL (6.4-8.2); Triglycerides 234 mg/dL (30-160)
[2023-12-18] MEDS ORDERED: Potassium Phosphate Dibasic 30 MM in Dextrose 5% 500 ML IV ONE (06:15)
--- NOTE | 2023-12-18 06:29 | NUR ---
SHIFT SUMMARY: PT ABLE TO GET SOME REST THIS SHIFT. REMAINS ALERT AND ORIENTED, ABLE TO ANSWER QUESTIONS AND MAKE NEEDS KNOWN. PT ON CPAP T/O THE SHIFT WITH 2L BLEED IN. SPO2 >90%. DENIES SOB. DENIES PAIN. HADOOP SOFTWARE ENGINEER IN PLACE. SR WITH HR 60-70'S. LEVOPHED AT 5 MCG/MIN, TITRATED TO MAINTAIN MAP >65. DENIES CHEST PAIN/PRESSURE. TPN AT 75 ML/HR. LR AT 125 ML/HR. CENTRAL LINE TO RIJ REMAINS PATENT AND INFUSING. PIV INTACT AND SALINE LOCKED. CORTES PATENT AND DRAINING TO GRAVITY. NO BM THIS SHIFT.
--- NOTE | 2023-12-18 07:00 | NUR ---
BEDSIDE REPORT FROM SWEETIE FELIPE ON HOME CPAP MACHINE, 2L OXYGEN BLEED IN, ON 5MCG LEVOPHED, MAP >60. FLUIDS, TPN AND K+PHOS INFUSING VIA CENTRAL LINE. PT RESTING QUIETLY. ROCHELLE TO MIDLINE, CORTES TO GRAVITY DRAINAGE, OSTOMY SITE CLEAN, DRY AND INTACT.
--- NOTE | 2023-12-18 11:21 | NUR ---
DR. MENDEZ MADE ROUNDS, ENCOURAGED PT TO PERFORM WITH OT/PT TODAY AND ENCOURAGE BOWEL FUNCTION BEFORE BEGINNING INTAKE. WILL RESTART THE ANTI-COAG WITH SMALL SIPS OF WATER.
--- NOTE | 2023-12-18 12:24 | NUR ---
BEATA WORKED WITH PT/OT, DID WELL. STATED THAT SHE WAS HAVING PAIN NOW, MEDICATED PER MAR. IV SITE DRESSINGS CHANGED, INCLUDING CENTRAL LINE. PAS PLACED BACK ON. CORTES SHOWS GOOD URINE OUTPUT. DAUGHTERS HAVE RETURNED TO BEDSIDE.
--- NOTE | 2023-12-18 13:33 | NUR ---
Spiritual Care Support Pt. is awake in bed and welcomes my visit. Three duaghters of Pt. are at bedside. Pt. is pleasant and displays evidence of gratitude for the care she is recieving. Family confirmed that Father Bobby had visited the Pt. the previous day, and verbalized gratitiude for the spiritual care support.
--- NOTE | 2023-12-18 18:11 | NUR ---
BEATA HAS BEEN ABLE TO WORK WITH THERAPY TODAY, GET OFF THE PRESSORS, TAKE IN A COUPLE OF SMALL ICE CHIPS, COMMUNICATE WITH STAFF AND HER FAMILY. MIDLINE INCISION DRESSING C/D/I, ROCHELLE INTACT. COLOSTOMY REMAINS CLEAN AND DRY, NO EVIDENCE OF FLATULENCE OR STOOL YET. CONTINUE TO INCREASE MOBILITY, WORK WITH THERAPY, REMAIN OFF PRESSORS AND RESTORE GUT FUNCTION. TPN AT 75MLS/HR, NS @ TKO, PIP/TAZO OVER [address]
[2023-12-18] MEDS ORDERED: Apixaban 5 MG Tab PO SCH (21:00)
--- NOTE | 2023-12-18 22:00 | NUR ---
ASSUMPTION OF CARE: RECEIVED REPORT FROM WENDY HART. PT ALERT AND ORIENTED. ABLE TO ANSWER QUESTIONS AND MAKE NEEDS KNOWN. PT REQUESTED TO BE LEFT ALONE MUCH POSSIBLE TO ALLOW FOR SLEEP. PT TOLERATING PO MEDS WITH SIPS OF WATER. NO C/O N/V. ROCHELLE DRESSING TO ABDOMEN REMAINS C/D/I, WITH GOOD SUCTION NOTED. COLOSTOMY HAS NO OUTPUT NOTED. STOMA PINK. PT ON CPAP FOR SLEEP WITH 2L BLEED IN. SPO2 >90%> DENIES SOB. LUNG SOUNDS CLEAR/DIM T/O. CONTINUOUS DISTRICT ASSOCIATE JUDGE IN PLACE, SR WITH HR 70'S. SBP 100'S. MAP >65. TPN AT 75 ML/HR. CENTRAL LINE TO RIJ PATENT AND INFUSING. PIV TO RAC SALINE LOCKED. CORTES DRAINING TO GRAVITY. BED LOW AND LOCKED. CALL LIGHT IN REACH.
[2023-12-19] VITALS (16 sets, daily range): BP systolic 87–156; BP diastolic 51–94
[2023-12-19 04:27] LABS: BASOPHILS ABSOLUTE AUTO 0.02 K/mm3 (0.00-0.23); BASOPHILS PERCENT AUTO 0 % (0-2); EOSINOPHILS ABSOLUTE AUTO 0.13 K/mm3 (0.00-0.68); EOSINOPHILS PERCENT AUTO 1 % (0-6); Hematocrit 22.7 % (33.0-51.0); Hemoglobin 7.4 g/dL (11.5-16.0); IMMATURE GRAN ABSOLUTE AUTO 0.22 K/mm3 (0.00-0.10); IMMATURE GRAN PERCENT AUTO 2 % (0-1); LYMPHOCYTES ABSOLUTE AUTO 1.15 K/mm3 (0.84-5.20); LYMPHOCYTES PERCENT AUTO 11 % (21-46); MONOCYTES ABSOLUTE AUTO 0.49 K/mm3 (0.16-1.47); MONOCYTES PERCENT AUTO 5 % (4-13); Mean Corpuscular HGB 28.5 pg (26.0-34.0); Mean Corpuscular HGB Conc 32.6 g/dL (31.5-36.5); Mean Corpuscular Volume 87 fL (80-100); Mean Platelet Volume 9.1 fL (9.1-12.4); NEUTROPHILS ABSOLUTE AUTO 8.37 K/mm3 (1.96-9.15); NEUTROPHILS PERCENT AUTO 81 % (41-73); NRBC ABSOLUTE 0.02 K/mm3 (0.00-0.02); NRBC Auto 0.2 /100 WBC (0.0-0.2); Platelet Count 256 K/mm3 (150-400); RDW Coefficient Variation 19.3 % (11.7-14.2); RDW Standard Deviation 60.3 fL (35.1-46.3); White Blood Cell Count 10.38 K/mm3 (4.00-11.30)
[2023-12-19 04:46] LABS: Magnesium, Blood 2.2 mg/dL (1.6-2.4)
[2023-12-19 04:54] LABS: Alanine Aminotransfer (ALT/SGP 19 U/L (12-78); Albumin, Blood 1.6 g/dL (3.4-5.0); Albumin/Globulin Ratio 0.5 (0.8-1.8); Alk Phos 45 U/L (50-136); Anion Gap Unable to Calculate mmol/L (6-16); Aspartate Aminotrans (AST/SGOT 13 U/L (12-37); Bilirubin, Total 0.2 mg/dL (0.1-1.0); Blood Urea Nitrogen 20 mg/dL (8-24); Bun/Creatinine Ratio 24.7 (12.0-20.0); CO2, Blood 27 mmol/L (21-32); Calcium, Blood 8.4 mg/dL (8.5-10.1); Chloride, Blood 116 mmol/L (98-108); Creatinine, Blood 0.81 mg/dL (0.40-1.00); Glomerular Filtration Rate 69 (60-); Glucose, Blood 112 mg/dL (70-99); Sodium, Blood 142 mmol/L (136-145); Total Protein, Blood 4.6 g/dL (6.4-8.2)
[2023-12-19] MEDS ORDERED: Sodium Phosphate 20 MM in Dextrose 5% 500 ML IV STA (05:51)
--- NOTE | 2023-12-19 06:10 | NUR ---
SHIFT SUMMARY: PT ABLE TO REST T/O THE SHIFT. REMAINS ALERT AND ORIENTED, ABLE TO ANSWER QUESTIONS AND MAKE NEEDS KNOWN. PT ON CPAP T/O THE SHIFT WITH 2L BLEED IN, SPO2 >92%. DENIES SOB. COMMUNITY SERVICE TECHNICIAN IN PLACE, SR WITH HR 60'S. SBP 100'S. DENIES CHEST PAIN OR PRESSURE. DENIES PAIN T/O. ROCHELLE TO ABDOMEN C/D/I WITH GOOD SUCTION NOTED. OSTOMY CONTINUES TO HAVE NO OUTPUT, STOMA PINK. CENTRAL LINE TO RIJ PATENT AND INFUSING. TPN AT 75 ML/HR. CORTES PATENT AND DRAINING TO GRAVITY. PIV TO RAC SALINE LOCKED. TOLERATING SMALL SIPS OF WATER AND ICE CHIPS T/O THE SHIFT. NO C/O N/V. CALL LIGHT IN REACH.
--- NOTE | 2023-12-19 10:50 | NUR ---
BEATA IS IN THE RECLINER, SHE TOOK QUITE A BIT OF EFFORT TO GET THERE, SHE STATES THAT HER PAIN IS A 3, HER FACE LOOKS MORE LIKE ITS AN 8. SHE IS MEDICATED WITH FENTANYL. ENCOURAGEMENT GIVEN. BREATHING WELL, GOOD COUGH WHILE STANDING. DIFFICULTY WITH THE LEFT KNEE AND MOBILITY. TPN REMAINS INFUSING IN THE RIGHT CENTRAL LINE @ 75ML/HR.
--- NOTE | 2023-12-19 14:27 | NUR ---
BEATA REQUESTED TO RETURN TO BED. SHE HAD A HARD TIME GETTING ENOUGH STRENGTH TO STAND. ONCE ABLE TO STAND SHIFTING LATERALLY WAS DIFFICULT THE BED WAS ON HER LEFT, HER LEFT KNEE HAS A LOT OF PAIN R/T ARTHRITIS. CPT, RAIL SIGNAL MECHANIC STUDENT AND MYSELF ASSISTED HER BACK TO BED. HER BIGGEST COMPLAINT IS THE LEFT KNEE. SHE WAS ABLE TO HELP TURN AND TRANSITION HERSELF TO A BETTER POSITION. DAUGHTERS IN THE ROOM.
--- NOTE | 2023-12-19 17:23 | NUR ---
PT AWAKE FOR , OSTOMY SITE IS NOW FILLING WITH LIQUID, RED COLOR. DR. MENDEZ TELLS PATIENT SHE IS ALLOWED TO HAVE SOME WATER, SIPS AT A TIME AND TO BE CAUTIOUS. PT AND DAUGHTER GIVEN SOME EDUCATION REGARDING EMPTYING THE BAG. QUESTIONS ASKED, ANSWERED.
--- NOTE | 2023-12-19 19:34 | NUR ---
ASSUMED CARE OF PATIENT AT 1900 VSS AND NO ACUTE NEEDS IDENTIFIED AT THIS TIME. SEE SHIFT ASSESSMENT FOR FULL ASSESSMENT DETAILS.
--- NOTE | 2023-12-19 23:46 | NUR ---
CALL TO DAUGHTER PT NOTIFIED OF TRANSFER TO SURGICAL FLOOR. PER PT REQUEST, CALLED AND NOTIFIED DAUGHTER, ROBERT NEWMAN, OF THIS.
[2023-12-20] VITALS (7 sets, daily range): BP systolic 107–137; BP diastolic 64–86
[2023-12-20 04:01] LABS: BASOPHILS ABSOLUTE AUTO 0.05 K/mm3 (0.00-0.23); BASOPHILS PERCENT AUTO 0 % (0-2); EOSINOPHILS ABSOLUTE AUTO 0.18 K/mm3 (0.00-0.68); EOSINOPHILS PERCENT AUTO 2 % (0-6); Hemoglobin 7.9 g/dL (11.5-16.0); IMMATURE GRAN ABSOLUTE AUTO 0.56 K/mm3 (0.00-0.10); IMMATURE GRAN PERCENT AUTO 5 % (0-1); LYMPHOCYTES ABSOLUTE AUTO 1.63 K/mm3 (0.84-5.20); LYMPHOCYTES PERCENT AUTO 14 % (21-46); MONOCYTES ABSOLUTE AUTO 0.57 K/mm3 (0.16-1.47); MONOCYTES PERCENT AUTO 5 % (4-13); Mean Corpuscular HGB 27.9 pg (26.0-34.0); Mean Corpuscular HGB Conc 31.6 g/dL (31.5-36.5); Mean Corpuscular Volume 88 fL (80-100); Mean Platelet Volume 9.1 fL (9.1-12.4); NEUTROPHILS ABSOLUTE AUTO 8.35 K/mm3 (1.96-9.15); NEUTROPHILS PERCENT AUTO 74 % (41-73); NRBC ABSOLUTE 0.08 K/mm3 (0.00-0.02); NRBC Auto 0.7 /100 WBC (0.0-0.2); Platelet Count 252 K/mm3 (150-400); RDW Coefficient Variation 19.6 % (11.7-14.2); RDW Standard Deviation 60.4 fL (35.1-46.3); Red Blood Cell Count 2.83 M/mm3 (3.80-5.20); White Blood Cell Count 11.34 K/mm3 (4.00-11.30)
[2023-12-20 04:32] LABS: Magnesium, Blood 2.2 mg/dL (1.6-2.4)
[2023-12-20 04:33] LABS: Bun/Creatinine Ratio 27.1 (12.0-20.0); Calcium, Blood 8.7 mg/dL (8.5-10.1); Creatinine, Blood 0.7 mg/dL (0.40-1.00); Phosphorus, Blood 2.1 mg/dL (2.5-4.9); Potassium, Blood 4.2 mmol/L (3.5-5.5)
--- NOTE | 2023-12-20 06:10 | NUR ---
SHIFT SUMMARY PT REMAINED A&O X 4 T/O ENTIRETY OF SHIFT. [place] - HEARING AIDS AT BEDSIDE. DENIED ANY POSTOPERATIVE/ABDOMINAL PAIN. DECLINED OT AT 12/19/23 AM SHE HAD JUST GOTTEN BACK TO BED FROM CHAIR, BUT IS AGREEABLE TO OT ON 12/20/23 AM. SR WITH HR IN 80'S. BP STABLE. ON ROOM AIR UNTIL BEDTIME - APPLIED CPAP WITH 2LPM O2 BLED IN. OSTOMY TO LUQ, STOMA IS PINK. 25mL OF RED LIQUID OUT. NO BM THIS SHIFT. CORTES IN PLACE DRAINING CLEAR YELLOW URINE TO GRAVITY. 1850 OUT THIS SHIFT. ROCHELLE DRESSING MIDLINE WITH DRAINAGE MARKED AT START OF SHIFT AND NO CHANGE. TPN INFUSING TO RIJ AT 75mL/HR, NS AT 10mL/HR. PIV TO RAC. CALL LIGHT IN REACH. WILL CONTINUE TO MONITOR AND REPORT TO ONCOMING NURSE.
[2023-12-20] MEDS ORDERED: Sodium Phosphate 20 MM in Dextrose 5% 500 ML IV STA (06:50)
[2023-12-20] MEDS ORDERED: [UNRECOGNIZED DRUG - OTHER] IV SCH ×2 (17:00)
[2023-12-20] MEDS ORDERED: Parenteral Electolytes 40 ML,Potassium Phosphate Dibasic 30 MM,Multivitamins 10 ML,ZINC... IV SCH (17:00)
[2023-12-20] MEDS ORDERED: POTASSIUM CHLORIDE 40 MEQ IV SCH ×2 (17:00)
[2023-12-20] MEDS ORDERED: SODIUM ACETATE 40 MEQ IV SCH ×2 (17:00)
[2023-12-20] MEDS ORDERED: SODIUM CHLORIDE 30 MEQ IV SCH ×2 (17:00)
--- NOTE | 2023-12-20 18:37 | NUR ---
Pt continues to make slow improvements. Diet advanced to full liquid today, pt still has poor oral intake so CPN continuing tonight, rate titrated down to 67 ml/hr per dietary. On RA, oriented to self/surroundings/event/person. Pt denies pain except with mobility, tolerating movement well. Up to chair this afternoon with OT, pt able to stand and pivot with 2 person standby assistance. Pt too weak to transfer back to bed safely this afternoon, chair sling used with good effect. LUQ colostomy appliance remains in place. Abdominal dressing C/D/I, marcelino wound vac in place, no leaks. No further drainage noted this shift through dressing. Continue to encourage oral intake for pt. See chart for further details. Will report off to nightshift RN.
--- NOTE | 2023-12-20 19:00 | NUR ---
ASSUMED CARE OF PT AT 1900. REPORT RECEIVED FROM HAILEY RETANA. VSS AND NO ACUTE NEEDS IDENTIFIED AT THIS TIME. SEE SHIFT ASSESSMENT FOR FULL ASSESSMENT DETAILS.
[2023-12-20] MEDS ORDERED: Omega-3 Acid Ethyl Esters 1,000 MG CAP PO SCH (21:00)
[2023-12-21] VITALS (10 sets, daily range): BP systolic 109–133; BP diastolic 59–93
--- NOTE | 2023-12-21 00:08 | NUR ---
ASSUMED CARE OF PT AT THIS TIME. PT RESTING IN BED. VITALS WNL.
[2023-12-21 04:09] LABS: Bun/Creatinine Ratio 25.1 (12.0-20.0); Calcium, Blood 8.6 mg/dL (8.5-10.1); Creatinine, Blood 0.72 mg/dL (0.40-1.00); Magnesium, Blood 2.2 mg/dL (1.6-2.4); Phosphorus, Blood 2.9 mg/dL (2.5-4.9); Potassium, Blood 4.2 mmol/L (3.5-5.5)
--- NOTE | 2023-12-21 06:24 | NUR ---
SHIFT SUMMARY PT RESTED WITH CPAP IN PLACE THIS SHIFT. NO C/O PAIN. VITALS WNL. BROWN LIQUID STOOL PRESENT IN COLOSTOMY BAG. ADEQUATE URINE OUTPUT, HOWEVER EXACT AMOUNT OF URINE WILL BE FALSE D/T LEAK IN URINE BAG. WILL CONTINUE TO MONITOR UNTIL REPORT GIVEN TO AM RN.
[2023-12-21 08:00] LABS: Hemoglobin 7.7 g/dL (11.5-16.0); Mean Corpuscular HGB 28.5 pg (26.0-34.0); Mean Corpuscular HGB Conc 32.1 g/dL (31.5-36.5); Mean Corpuscular Volume 89 fL (80-100); Mean Platelet Volume 9.2 fL (9.1-12.4); NRBC ABSOLUTE 0.05 K/mm3 (0.00-0.02); NRBC Auto 0.5 /100 WBC (0.0-0.2); Platelet Count 218 K/mm3 (150-400); RDW Coefficient Variation 20.1 % (11.7-14.2); RDW Standard Deviation 61.7 fL (35.1-46.3); White Blood Cell Count 10.55 K/mm3 (4.00-11.30)
[2023-12-21] MEDS ORDERED: Lactobacil 2-S.Thermo-Bifido 1 1 Cap PO SCH (09:00)
[2023-12-21] MEDS ORDERED: Atenolol 25 MG Tab PO SCH (09:00)
[2023-12-21 10:20] LABS: BAND PERCENT MAN 3 % (0-8); BASOPHILS PERCENT MAN 0 % (0-2); EOSINOPHILS PERCENT MAN 1 % (0-6); LYMPHOCYTES ABSOLUTE MAN 2.32 K/mm3 (0.84-5.20); LYMPHOCYTES PERCENT MAN 22 % (21-46); MONOCYTES ABSOLUTE MAN 0.73 K/mm3 (0.16-1.47); MONOCYTES PERCENT MAN 7 % (4-13); MYELOCYTE PERCENT MAN 1 % (0-0); NEUTROPHILS ABSOLUTE MAN 7.27 K/mm3 (1.96-9.15); SEG NEUTROPHILS PERCENT MAN 66 % (41-73); TOTAL CELLS COUNTED 100
--- NOTE | 2023-12-21 18:36 | NUR ---
Shift summary. Pt rested in bed this shift, increased output noted from colostomy. Midline abdominal dressing in place, C/D/I, marcelino wound vac in place, no leaks. PICC placed today, central line DC'd, PIV DC'd. CPN and tko infusing through PICC. Hastings catheter in place, draining to gravity. No acute events this shift, see chart for details. Will report off to nightshift RN.
--- NOTE | 2023-12-21 19:45 | NUR ---
TRANSFER PT MOVED FROM ICU 8 TO ROOM 227, PT IS AWAKE, A&O, ON RA, VSS, DENIES PAIN/NAUSEA, SINUS @ 80 VIA TELE, SCD'S ON, BED IN LOW POSITION, CALL LIGHT IN REACH, NO REQUESTS AT THIS TIME. WCTM.
[2023-12-22 04:55] VITALS: BP 142/84
--- NOTE | 2023-12-22 05:23 | NUR ---
SHIFT SUMMARY NO CHANGES NOTED, A&O X3, VSS, RA, NEAL PO, PAIN WNL, NO NEW DRAINAGE ON SURGICAL DRSG, OSTOMY PRODUCING BROWN LIQUID STOOL, CORTES PATENT, URINE IS CLEAR YELLOW, SCD'S ON, SINUS 80-90'S, CPN INFUSING, Q2 TURNS, CALL LIGHT IN REACH, WCTM & REPORT
[2023-12-22 07:32] VITALS: BP 126/71
[2023-12-22] MEDS ORDERED: Piperacillin/Tazobactam Sod 3.375 GM in NS 50 ML IV SCH (08:15)
[2023-12-22 12:47] LABS: BASOPHILS ABSOLUTE AUTO 0.05 K/mm3 (0.00-0.23); BASOPHILS PERCENT AUTO 0 % (0-2); EOSINOPHILS PERCENT AUTO 2 % (0-6); Hematocrit 26.3 % (33.0-51.0); Hemoglobin 8.2 g/dL (11.5-16.0); IMMATURE GRAN ABSOLUTE AUTO 0.52 K/mm3 (0.00-0.10); IMMATURE GRAN PERCENT AUTO 5 % (0-1); LYMPHOCYTES ABSOLUTE AUTO 1.38 K/mm3 (0.84-5.20); LYMPHOCYTES PERCENT AUTO 12 % (21-46); MONOCYTES ABSOLUTE AUTO 0.96 K/mm3 (0.16-1.47); MONOCYTES PERCENT AUTO 9 % (4-13); Mean Corpuscular HGB Conc 31.2 g/dL (31.5-36.5); Mean Corpuscular Volume 90 fL (80-100); NEUTROPHILS ABSOLUTE AUTO 8.09 K/mm3 (1.96-9.15); NEUTROPHILS PERCENT AUTO 72 % (41-73); NRBC ABSOLUTE 0.02 K/mm3 (0.00-0.02); NRBC Auto 0.2 /100 WBC (0.0-0.2); Platelet Count 219 K/mm3 (150-400); RDW Coefficient Variation 20.4 % (11.7-14.2); RDW Standard Deviation 64.1 fL (35.1-46.3); Red Blood Cell Count 2.93 M/mm3 (3.80-5.20)
[2023-12-22 12:59] LABS: Bun/Creatinine Ratio 23.7 (12.0-20.0); Calcium, Blood 9.3 mg/dL (8.5-10.1); Creatinine, Blood 0.8 mg/dL (0.40-1.00); Phosphorus, Blood 2.7 mg/dL (2.5-4.9); Potassium, Blood 4.2 mmol/L (3.5-5.5)
[2023-12-22] MEDS ORDERED: Stomahesive Powder 1 APPLIC/28.3 GM BTL TOP PRN (15:00)
[2023-12-22 16:19] VITALS: BP 131/78
--- NOTE | 2023-12-22 17:30 | NUR ---
SHIFT SUMMARY AOX4, POD5 COLLECTOMY WITH OSTOMY. MIDLINE WITH ROCHELLE DRESSING INTACT, S/S DRNG TO LOWER MIDDLE DRESSING. OSTOMY PUTTING OUT BROWN LIQUID STOOL. STOMA ROUND AND PINK. PATIENT UP TO CHAIR 2 ASSIST ANYI, FWW. POWER GLIDE IN SUMMER, RUNNING TPN. PATIENT ABLE TO TOLERATE SMALL AMOUNT OF REG DIET AND LIQUIDS. CORTES IN PLACE PATENT AND DRAINING CLEAR YELLOW URINE. VITALS STABLE, CALL LIGHT IN REACH.
[2023-12-22 19:31] VITALS: BP 148/85
[2023-12-23 04:00] VITALS: BP 141/75
[2023-12-23 07:16] VITALS: BP 144/90
--- NOTE | 2023-12-23 09:33 | NUR ---
DR PENA IN TO SEE PT.
--- NOTE | 2023-12-23 15:16 | NUR ---
REMOVED ROCHELLE PER ORDERS AND CHANGED OSTOMY APPLIANCE JAYY Montes RN, CHANGED OSTOMY AND REVIEWED EDUCATION WITH PT AND PT'S FAMILY. FAMILY AND PT ASKED QUESTIONS. PT STATED COULD NOT SEE CHANGE BUT PT'S DAUGHTERS WATCHED. PT HAS SMALL BLISTER INFERIOR TO STOMA. OSTOMY APPLIANCE ADHESIVE TAPE CUT TO AVOID COVERING BLISTERING. MEDIPORE DRESSING PLACED OVER MIDLINE INCISION. WARM BLANKET APPLIED TO ABD TO HELP WITH APPLIANCE ADHERENCE TO SKIN. PT DENIES ANY NEEDS AT THIS TIME. DAUGHTERS BEDSIDE. CALL LIGHT IN REACH.
[2023-12-23 15:23] VITALS: BP 143/76
--- NOTE | 2023-12-23 17:33 | NUR ---
SUMMARY NO ACUTE CHANGES T/O SHIFT. PT'S PO INTAKE MINIMAL. TPN RUNNING PER ORDERS. PT WORKED WITH OT AND GOT UP TO CHAIR THIS AM. 1 PERSON MOD ASSIST BACK TO BED. ROCHELLE DRESSING DC'D PER ORDERS THIS AFTERNOON. OSTOMY APPLIANCE CHANGED AT SAME TIME BY JAYY Montes RN, WHO EDUCATED PT AND FAMILY DURING CHANGE. IT WAS NOTED PT HAD BLISTER INFERIOR TO STOMA. TAPE ON OSTOMY APPLIANCE TRIMMED TO AVOID COVERING BLISTER. PT NOW RESTING IN BED, CALL LIGHT IN REACH. DAUGHTER BEDSIDE.
[2023-12-23 19:47] VITALS: BP 132/72
[2023-12-24 05:00] VITALS: BP 151/72
--- NOTE | 2023-12-24 05:22 | NUR ---
SHIFT SUMMARY NO ACUTE CHANGES. PT SLEPT WELL T/O NOC. DECLINES NEED FOR PAIN MEDICATIONS. MEDIPORE DRESSING REMAINS UNCHANGED FROM START OF SHIFT WITH A SMALL SPOT OF OLD SHADOWING. COLOSTOMY WITH SMALL AMOUNT OF LIQUID BROWN STOOL. CORTES WITH CLEAR YELLOW URINE. TPN + IV ABX PER ORDERS. PT WORE CPAP T/O NOC. USES CALL LIGHT APPROPRIATELY.
[2023-12-24 07:15] VITALS: BP 155/83
[2023-12-24] MEDS ORDERED: Atenolol 25 MG Tab PO SCH (09:00)
--- NOTE | 2023-12-24 11:22 | NUR ---
Spiritual Care Visit. Pt. is awake and sitting up in a recliner when she welcomes my visit. Two daughters of pt. are at bedside. Pt. is pleasant. Facilitate a life update. Pt. displays evidence of engagement and awareness. Pt. verbalizes an expectation to need to go to rehab facility at discharge. Prayed with Pt. Pt. and daughters verbalize gratitude for the spiritual care visit. Pt. verbalized she would like Father Bobby to know she is still in the hospital.
[2023-12-24 16:26] VITALS: BP 107/67
--- NOTE | 2023-12-24 17:26 | NUR ---
SUMMARY NO ACUTE CHANGES T/O SHIFT. PT WORKED WITH PT THIS MORNING AND SAT UP IN RECLINER APPROXIMATELY 3 HRS. SLEPT IN BED THIS AFTERNOON. APPETITE CONTINUES TO BE POOR. OSTOMY PUTTING OUT BROWN LIQUID. JAYY Montes RN, CAME IN AND SPOKE TO PT AND FAMILY REGARDING OSTOMY EDUCATION THIS AM. PT NOW RESTING IN BED. CALL LIGHT IN REACH.
[2023-12-24 19:19] VITALS: BP 115/65
[2023-12-25] VITALS (9 sets, daily range): BP systolic 114–136; BP diastolic 66–88
--- NOTE | 2023-12-25 04:36 | NUR ---
SHIFT SUMMARY POD 9 SMALL BOWEL RESECTION W/ COLOSTOMY PT SLEPT T/O THE NIGHT. DENIES ANY PAIN. COLOSTOMY OUTPUT IS BRON LIQUID. PT WORE CPAP ALL NIGHT WITH CONT BIOX ON, SATTING ABOVE 92%. CORTES D/C'ED THIS MORNING. VSS. NO OTHER CONCERNS AT THIS TIME. CALL LIGHT WITHIN REACH
[2023-12-25 04:55] LABS: Hematocrit 20.3 % (33.0-51.0); Hemoglobin 6.3 g/dL (11.5-16.0); Mean Corpuscular HGB 28.3 pg (26.0-34.0); Mean Corpuscular Volume 91 fL (80-100); Mean Platelet Volume 10.4 fL (9.1-12.4); NRBC Auto 0.9 /100 WBC (0.0-0.2); Platelet Count 172 K/mm3 (150-400); RDW Coefficient Variation 20.4 % (11.7-14.2); RDW Standard Deviation 67.1 fL (35.1-46.3); Red Blood Cell Count 2.23 M/mm3 (3.80-5.20); White Blood Cell Count 10.55 K/mm3 (4.00-11.30)
[2023-12-25 05:26] LABS: Anion Gap 3 mmol/L (6-16); Blood Urea Nitrogen 28 mg/dL (8-24); Bun/Creatinine Ratio 31.5 (12.0-20.0); CO2, Blood 23 mmol/L (21-32); Calcium, Blood 8.9 mg/dL (8.5-10.1); Chloride, Blood 112 mmol/L (98-108); Creatinine, Blood 0.89 mg/dL (0.40-1.00); Glomerular Filtration Rate 62 (60-); Glucose, Blood 116 mg/dL (70-99); Potassium, Blood 4.3 mmol/L (3.5-5.5); Sodium, Blood 138 mmol/L (136-145); Triglycerides 180 mg/dL (30-160)
[2023-12-25 13:26] LABS: IMMATURE RETIC FRACTION 40.7 % (2.3-16.0); RETIC HGB EQUIVALENT 29.6 pg (28.20-36.60); RETICULOCYTE ABSOLUTE 0.1235 M/mm3 (0.0200-0.1100); RETICULOCYTE COUNT PERCENT 4.94 % (0.50-2.50)
[2023-12-25 13:55] LABS: Percent Saturation 21.2 % (15.0-50.0)
[2023-12-25 15:00] LABS: International Normalized Ratio 1.03; Prothrombin Time Results 10.8 Sec (9.7-11.5)
[2023-12-25 15:01] LABS: Anti-Xa UFH, PHA Monitoring >1.50 IU/mL
[2023-12-25] MEDS ORDERED: Heparin Sodium,Porcine/0.5 NS 500 ML IV SCH (15:10)
--- NOTE | 2023-12-25 15:41 | NUR ---
HEPARIN DRIP STARTED AT THIS TIME PER ORDER
--- NOTE | 2023-12-25 15:43 | NUR ---
DR. GALVAN AWARE OF CRITICAL HEPARIN ANTI-XA. PHARMACY TO MANAGE. NO CHANGE IN PT STATUS.
[2023-12-25 15:48] LABS: Hematocrit 24.1 % (33.0-51.0); Hemoglobin 7.7 g/dL (11.5-16.0)
--- NOTE | 2023-12-25 18:15 | NUR ---
SUMMARY: PT IS POD9 SMALL BOWEL RESECTION. A/O, VSS. TELE WNL. SURGICAL SITE WNL, OSTOMY EMPTIED X1 DARK BROWN LIQUID STOOL. PT HAS DENIED ANY ACUTE PAIN. 1 UNIT OF PRBC'S INFUSED, PT TOLERATED WELL. TPN DC'D TONIGHT, PT ATE SMALL AMOUNT TODAY. NO ACUTE SAFETY CONCERNS.
[2023-12-25] MEDS ORDERED: Dose Adjust by Pharmacy XX STA (22:58)
[2023-12-26 04:09] VITALS: BP 129/70
[2023-12-26 05:01] LABS: Hematocrit 23.5 % (33.0-51.0); Hemoglobin 7.4 g/dL (11.5-16.0); Mean Corpuscular HGB 28.7 pg (26.0-34.0); Mean Corpuscular HGB Conc 31.5 g/dL (31.5-36.5); Mean Corpuscular Volume 91 fL (80-100); Mean Platelet Volume 10.2 fL (9.1-12.4); NRBC ABSOLUTE 0.12 K/mm3 (0.00-0.02); NRBC Auto 1.1 /100 WBC (0.0-0.2); Platelet Count 188 K/mm3 (150-400); RDW Coefficient Variation 19.7 % (11.7-14.2); RDW Standard Deviation 62.9 fL (35.1-46.3); Red Blood Cell Count 2.58 M/mm3 (3.80-5.20); White Blood Cell Count 10.74 K/mm3 (4.00-11.30)
--- NOTE | 2023-12-26 05:06 | NUR ---
SHIFT SUMMARY POD 10 SMALL BOWEL RESECTION, MATTY, SIGMOIDECTOMY W/ COLOSTOMY PT RESTED T/O NIGHT. DENIES ANY PAIN. TOLERATING PO INTAKE, VOIDING. HEPARIN DOSE INCREASED AT 2300 VIA PHARMACY. HEPARIN RUNNING ALL NIGHT. PT UP TO THE BSC WITH MOD 1 PERS ASST WITH FWW AND GAIT BELT. PT WORE CPAP ALL NIGHT. SATS STAYING ABOVE 92%. NO OTHER CONCERNS AT THIS TIME. CALL LIGHT WITHIN REACH
[2023-12-26 05:31] LABS: Albumin, Blood 1.8 g/dL (3.4-5.0); Albumin/Globulin Ratio 0.5 (0.8-1.8); Bilirubin, Total 0.4 mg/dL (0.1-1.0); Bun/Creatinine Ratio 28.6 (12.0-20.0); Calcium, Blood 8.8 mg/dL (8.5-10.1); Creatinine, Blood 0.87 mg/dL (0.40-1.00); Globulin, Blood 3.6 g/dL (2.2-4.0); Total Protein, Blood 5.4 g/dL (6.4-8.2)
[2023-12-26] MEDS ORDERED: Dose Adjust by Pharmacy XX STA ×3 (05:35→18:53)
[2023-12-26 06:20] LABS: BAND PERCENT MAN 1 % (0-8); BASOPHILS PERCENT MAN 1 % (0-2); EOSINOPHILS ABSOLUTE MAN 0.53 K/mm3 (0.00-0.68); EOSINOPHILS PERCENT MAN 5 % (0-6); LYMPHOCYTES ABSOLUTE MAN 1.71 K/mm3 (0.84-5.20); LYMPHOCYTES PERCENT MAN 16 % (21-46); METAMYELOCYTE PERCENT MAN 1 % (0-0); MONOCYTES ABSOLUTE MAN 0.85 K/mm3 (0.16-1.47); MONOCYTES PERCENT MAN 8 % (4-13); MYELOCYTE ABSOLUTE MAN 0.42 K/mm3 (0.00-0.00); MYELOCYTE PERCENT MAN 4 % (0-0); NEUTROPHILS ABSOLUTE MAN 6.98 K/mm3 (1.96-9.15); SEG NEUTROPHILS PERCENT MAN 64 % (41-73); TOTAL CELLS COUNTED 100
[2023-12-26 07:21] VITALS: BP 144/75
[2023-12-26 14:20] VITALS: BP 124/82
--- NOTE | 2023-12-26 18:14 | NUR ---
SHIFT SUMMARY POD10 RESECTION WITH NEW OSTOMY, A/OX4, VSS, TOLERATING PO, ABLE TO AMBULATE INTO THE BATHROOM WITH MINIMAL ASSISTANCE, OSTOMY PUTTING OUT MODERATE AMOUNT OF STOOL, DOING MORE ACTIVITIES DURING THE DAY WITH ENCOURAGEMENT FROM PT/OT AND NURSING STAFF, POSSIBLE DC TOMORROW. NO ACUTE EVENTS THIS SHIFT, CALL LIGHT IN REACH.
[2023-12-26 19:40] VITALS: BP 111/71
[2023-12-27] VITALS (7 sets, daily range): BP systolic 125–142; BP diastolic 61–77
[2023-12-27] MEDS ORDERED: Dose Adjust by Pharmacy XX STA ×2 (01:07→08:32)
--- NOTE | 2023-12-27 05:42 | NUR ---
SHIFT SUMMARY POD 11 SMALL BOWEL RESECTION, MATTY, SIGMIODECTOMY W/COLOSTOMY PT ABLE TO SLEEP T/O THE NIGHT. DENIES ANY PAIN. [place] [facility] [place] OSTOMY HAVING SOME OUTPUT, OUTPUT IS LIQUID AND DARK BROWN. OSTOMY APPLIACNE STARTED TO LEAK WITH A MANDY COLORED LIQUID, SCANT AMOUNT OF IT. APPLIANCE REINFORCED. CPAP WAS WORN ALL NIGHT. NO OTHER CONCERNS AT THIS TIME. CALL LIGHT WITHIN REACH
[2023-12-27 08:12] LABS: Hematocrit 21.8 % (33.0-51.0); Hemoglobin 6.8 g/dL (11.5-16.0); Mean Corpuscular HGB 28.9 pg (26.0-34.0); Mean Corpuscular HGB Conc 31.2 g/dL (31.5-36.5); Mean Corpuscular Volume 93 fL (80-100); Mean Platelet Volume 9.6 fL (9.1-12.4); NRBC ABSOLUTE 0.15 K/mm3 (0.00-0.02); NRBC Auto 1.6 /100 WBC (0.0-0.2); Platelet Count 204 K/mm3 (150-400); RDW Coefficient Variation 20.3 % (11.7-14.2); Red Blood Cell Count 2.35 M/mm3 (3.80-5.20); White Blood Cell Count 9.31 K/mm3 (4.00-11.30)
[2023-12-27 08:32] LABS: Albumin, Blood 1.8 g/dL (3.4-5.0); Albumin/Globulin Ratio 0.5 (0.8-1.8); Bilirubin, Total 0.3 mg/dL (0.1-1.0); Calcium, Blood 8.9 mg/dL (8.5-10.1); Creatinine, Blood 0.88 mg/dL (0.40-1.00); Globulin, Blood 3.5 g/dL (2.2-4.0); Potassium, Blood 3.9 mmol/L (3.5-5.5); Total Protein, Blood 5.3 g/dL (6.4-8.2)
[2023-12-27 08:36] LABS: BAND PERCENT MAN 1 % (0-8); BASOPHILS PERCENT MAN 0 % (0-2); EOSINOPHILS ABSOLUTE MAN 0.46 K/mm3 (0.00-0.68); EOSINOPHILS PERCENT MAN 5 % (0-6); LYMPHOCYTES ABSOLUTE MAN 2.32 K/mm3 (0.84-5.20); LYMPHOCYTES PERCENT MAN 25 % (21-46); METAMYELOCYTE ABSOLUTE MAN 0.27 K/mm3 (0.00-0.00); METAMYELOCYTE PERCENT MAN 3 % (0-0); MONOCYTES ABSOLUTE MAN 0.55 K/mm3 (0.16-1.47); MONOCYTES PERCENT MAN 6 % (4-13); MYELOCYTE ABSOLUTE MAN 0.27 K/mm3 (0.00-0.00); MYELOCYTE PERCENT MAN 3 % (0-0); NEUTROPHILS ABSOLUTE MAN 5.39 K/mm3 (1.96-9.15); SEG NEUTROPHILS PERCENT MAN 57 % (41-73); TOTAL CELLS COUNTED 100
[2023-12-27] MEDS ORDERED: Heparin Sodium,Porcine/0.5 NS 500 ML IV SCH (12:00)
--- NOTE | 2023-12-27 13:11 | NUR ---
1 PRBC'S TRANSFUSED, PT TOLERATED WELL. PT TO ABD CT AT THIS TIME
--- NOTE | 2023-12-27 14:05 | NUR ---
CT OF ABD COMPLETE. PER DR. ANDREA GARCIA TO RESTART HEPARIN. SPOKE WITH PHARMACY, HEPARIN RESTARTED AT THIS TIME AT INFUSION RATE OF 20.7ML/HR, 15U/KG/HR. VERIFIED WITH HAILEY MARTÍNEZ.
[2023-12-27] MEDS ORDERED: Pantoprazole Sodium 40 MG Injection IV SCH (16:30)
--- NOTE | 2023-12-27 16:54 | NUR ---
STOOL LEAKING FROM OSTOMY APPLIANCE. OSTOMY BAG CHANGED AT 1400. STOMA APPEARS WNL, BEEFY AND RED WITH SMALL AMT DARK RED BLOOD SOURROUNDING THE STOMA. STOOL IS MORE FORMED AND DARK BROWN. MIDLINE ABD DRESSING ALSO CHANGED, ABHI APPEAR WNL, SLIGHT BRUISING AROUND INCISION. DRESSING NOW CDI.
--- NOTE | 2023-12-27 16:57 | NUR ---
SUMMARY: PT IS NOW POD11 COLECTOMY WITH OSTOMY PLACEMENT. A/O, VSS. PT DOING WELL TONIGHT. ABLE TO GET UP TO CHAIR WITH THERAPY TODAY, 1 ASSIST FWW. PT EATING A LITTLE MORE FOOD THAT FAMILY BRINGS AND SOME PO FLUIDS. HEPARIN CONTINUES TO INFUSED THROUGH PICC LINE AT THIS TIME, PER PHARMACY PLAN IS TO DC HEPARIN AT 2100 TONIGHT WHEN 1ST DOSE OF LOVENOX IS GIVEN. WILL MAKE NOC RN AWARE. PT FAMILY AT BEDSIDE.
[2023-12-27] MEDS ORDERED: Enoxaparin 100 MG/ML 1ML SYR SC SCH (21:00)
[2023-12-28 03:40] VITALS: BP 114/69
[2023-12-28 05:48] LABS: Hematocrit 26.1 % (33.0-51.0); Hemoglobin 8.2 g/dL (11.5-16.0); Mean Corpuscular HGB 28.3 pg (26.0-34.0); Mean Corpuscular HGB Conc 31.4 g/dL (31.5-36.5); Mean Corpuscular Volume 90 fL (80-100); Mean Platelet Volume 9.7 fL (9.1-12.4); NRBC ABSOLUTE 0.11 K/mm3 (0.00-0.02); Platelet Count 266 K/mm3 (150-400); RDW Coefficient Variation 21.4 % (11.7-14.2); RDW Standard Deviation 67.6 fL (35.1-46.3); White Blood Cell Count 11.45 K/mm3 (4.00-11.30)
[2023-12-28 06:21] LABS: Bun/Creatinine Ratio 28.1 (12.0-20.0); Calcium, Blood 9.1 mg/dL (8.5-10.1); Creatinine, Blood 0.85 mg/dL (0.40-1.00); Potassium, Blood 3.6 mmol/L (3.5-5.5)
[2023-12-28 07:57] VITALS: BP 125/70
--- NOTE | 2023-12-28 14:46 | NUR ---
SHIFT SUMMARY: POD 12 COLECTOMY WITH OSTOMY PATIENT IS A&OX4. PATIENT DENIES PAIN AND REFUSES PAIN MEDS AT THIS TIME. HER PICC LINE IN HER RIGHT UPPER ARM IS SALINE LOCKED AT THIS TIME. HER MIDLINE ABD DRESSING IS INTACT AND DRY. HER LLQ OSTOMY HAS DARK BROWN/BLACK STOOL OUTPUT BUT STOMA IS RED WITH ATTACHMENT INTACT. SHE IS TOLERATING THE [employer] NUTRITION DRINKS GIVEN FROM THE [employer]. SHE IS A SBA WITH FWW AND GAIT BELT TO THE [id number]. PATIENT IS CURRENTLY LAYING IN BED WITH CALL LIGHT IN REACH. PATIENT CALLS APPROPRIATELY. DR. CORONADO PLACED ORDERS FOR PATIENT TO NOT HAVE LABS DRAWN BEFORE 5AM AND TO NOT NEED MIDNIGHT VITALS ON THIS PATIENT SO PATIENT IS ABLE TO HAVE A BETTER NIGHT SLEEPING.
--- NOTE | 2023-12-28 15:10 | NUR ---
ASSUMED CARE OF PT FROM MARILU Chandler RN. PT RESTING IN BED, CALL LIGHT IN REACH. DENIES ANY NEEDS AT THIS TIME. FAMILY BEDSIDE.
[2023-12-28 16:11] VITALS: BP 139/68
--- NOTE | 2023-12-28 16:50 | NUR ---
SUMMARY NO ACUTE CHANGES SINCE ASSUMING CARE OF PT. PT USED BSC TO VOID, IS NOW RESTING IN BED W/PULSE OX ON AND CPAP IN PLACE. STOOL SPECIMEN SENT FROM [facility] PER ORDERS. CALL LIGHT IN REACH.
--- NOTE | 2023-12-28 19:05 | NUR ---
PT SLEEPING W/CPAP ON REPORT GIVEN TO ONCOMING SHIFT.
[2023-12-28 20:37] VITALS: BP 116/63
[2023-12-28] MEDS ORDERED: Apixaban 5 MG Tab PO SCH (21:00)
--- NOTE | 2023-12-29 05:01 | NUR ---
SHIFT SUMMARY NO ACUTE CHANGES TO REPORT OVERNIGHT, PT HAS RESTED T/O THE SHIFT. AMBULATES TO THE [facility] [place] WITH 1 ASSIST USING FWW. PT HAS GENERALIZED WEAKNES, NOT ABLE TO SWING LEGS INTO BED, AND NOT ABLE TO PULL HERSELF UP IN BED WITHOUT ASSISTANCE. PT DENIES PAIN. OSTOMY PUTTING OUT SMALL AMOUNTS OF DARK BROWN/BLACK STOOL. GUAIAC STILL PENDING AT THIS TIME. VITALS ARE STABLE. BED IN LOWEST POSITION, CALL LIGHT WITHIN REACH.
[2023-12-29 05:18] VITALS: BP 153/81
[2023-12-29 07:36] VITALS: BP 125/72
[2023-12-29 08:31] LABS: Stool Occult Blood Guaiac 1 Pos (Neg)
[2023-12-29] MEDS ORDERED: Sod Ferric Gluc Complx/Sucrose 125 MG in NS 100 ML IV SCH (09:00)
[2023-12-29 09:25] LABS: Hematocrit 23.9 % (33.0-51.0); Hemoglobin 7.4 g/dL (11.5-16.0); Mean Corpuscular HGB 28.5 pg (26.0-34.0); Mean Corpuscular Volume 92 fL (80-100); Mean Platelet Volume 9.5 fL (9.1-12.4); NRBC Auto 1.2 /100 WBC (0.0-0.2); Platelet Count 268 K/mm3 (150-400); RDW Coefficient Variation 21.1 % (11.7-14.2); RDW Standard Deviation 68.9 fL (35.1-46.3); White Blood Cell Count 8.67 K/mm3 (4.00-11.30)
[2023-12-29 13:52] VITALS: BP 118/73
--- NOTE | 2023-12-29 17:28 | NUR ---
SHIFT SUMMARY POD13, MIDLINE ABHI/MEDIPORE CDI, OSTOMY WITH DK BROWN STOOL OUTPUT, SACRUM DRESSING ON. NEAL PO/LOW PO INTAKE, VOIDING/BRP, AMB 1 PP MIN ASSIST, UP TO CHAIR FOR BREAKFAST AND LUNCH, NEEDS ASSIST TO REPOSITION BACK IN BED, PAIN MANAGED. DAUGHTER BEDSIDE. WILL REPORT TO ONCOMING NOC RN.
[2023-12-29 21:25] VITALS: BP 118/67
[2023-12-30 05:58] VITALS: BP 135/69
[2023-12-30 07:10] LABS: Hematocrit 25.6 % (33.0-51.0)
--- NOTE | 2023-12-30 07:57 | NUR ---
SHIFT SUMMARY NOC. PT RESTED WITH CPAP AND BIOX INPLACE. PT RESTED T/O SHIFT ASIDE FROM GETTING UP TO VOID VIA BEDSIDE COMMODE. GENERALIZED WEAKNESS NOTED. PT DENIES PAIN. OSTOMY PRODUCING GAS AND DARK BROWN STOOL. PT RESTED WITH WITH EYES CLOSED AND CALL LIGHT IN REACH.
[2023-12-30 09:52] VITALS: BP 162/81
[2023-12-30 14:40] VITALS: BP 137/70
--- NOTE | 2023-12-30 16:50 | NUR ---
DISCHARGE PT LEFT VIA WHEELCHAIR. ALL BELONGINGS WITH PATIENT OR DAUGHTERS. REPORT CALLED TO DEV VENTURA. PT IS POD 14 FROM COLECTOMY. SHE IS HAVING DARK OUTPUT. UP TO COMMODE TO VOID. CALLS APPROPRIATLY. ABHI REMOVED WNL, PT TOLERATED WELL. EDUCATION CONTINUED REGARDING OSTOMY. PT PARTICIPATES. PT UP WITH 1 ASSIST. TOLERATING DIET WELL.
== END 2023-12-30 16:59 | DRG 853 ==
LOC: ER 11:08 → ICUE 11:09 → ERHOLD 11:09 → ICUE 12-16 00:47 → SURS 12-16 11:41 → ICUE 12-16 11:41 → SURS 12-21 19:46
PROVIDERS: Emergency Medicine; Family Medicine; Family Medicine Adult Medicine; Internal Medicine; Nurse Practitioner Acute Care; Student in an Organized Health Care Education/Training Program; Surgery; ADMIT Hospitalist
PROC: 3E03329 Introduction of Other Anti-infective into Peripheral Vein, Percutaneous Approach (ICD-10-PCS; 2023-12-15)
PROC: 0D9670Z Drainage of Stomach with Drainage Device, Via Natural or Artificial Opening (ICD-10-PCS; 2023-12-15)
PROC: 3E033XZ Introduction of Vasopressor into Peripheral Vein, Percutaneous Approach (ICD-10-PCS; 2023-12-15)
PROC: 0DB80ZZ Excision of Small Intestine, Open Approach (ICD-10-PCS; 2023-12-16)
PROC: 0DBV0ZZ Excision of Mesentery, Open Approach (ICD-10-PCS; 2023-12-16)
PROC: 0T9B70Z Drainage of Bladder with Drainage Device, Via Natural or Artificial Opening (ICD-10-PCS; 2023-12-16)
PROC: 0DTN0ZZ Resection of Sigmoid Colon, Open Approach (ICD-10-PCS; principal; 2023-12-16 14:00)
PROC: 0D1M0Z4 Bypass Descending Colon to Cutaneous, Open Approach (ICD-10-PCS; 2023-12-16 14:00)
PROC: 3E0436Z Introduction of Nutritional Substance into Central Vein, Percutaneous Approach (ICD-10-PCS; 2023-12-17)
PROC: 5A09357 Assistance with Respiratory Ventilation, Less than 24 Consecutive Hours, Continuous Positive Airway Pressure (ICD-10-PCS; 2023-12-18)
PROC: 02HV33Z Insertion of Infusion Device into Superior Vena Cava, Percutaneous Approach (ICD-10-PCS; 2023-12-21)
PROC: 30233N1 Transfusion of Nonautologous Red Blood Cells into Peripheral Vein, Percutaneous Approach (ICD-10-PCS; 2023-12-25)
DX: A41.9 Sepsis, unspecified organism (principal); K65.1 Peritoneal abscess; R65.21 Severe sepsis with septic shock; D62 Acute posthemorrhagic anemia; N17.9 Acute kidney failure, unspecified; K57.20 Diverticulitis of large intestine with perforation and abscess without bleeding; K56.609 Unspecified intestinal obstruction, unspecified as to partial versus complete obstruction; Z66 Do not resuscitate; D63.8 Anemia in other chronic diseases classified elsewhere; I48.0 Paroxysmal atrial fibrillation; E03.9 Hypothyroidism, unspecified; I10 Essential (primary) hypertension; G47.33 Obstructive sleep apnea (adult) (pediatric); E83.39 Other disorders of phosphorus metabolism; Z96.651 Presence of right artificial knee joint; Z96.643 Presence of artificial hip joint, bilateral; Z86.711 Personal history of pulmonary embolism; Z86.718 Personal history of other venous thrombosis and embolism; Z79.890 Hormone replacement therapy; Z87.891 Personal history of nicotine dependence; Z79.01 Long term (current) use of anticoagulants; Z78.1 Physical restraint status
CPT/HCPCS: 36415; 36430; 36569; 71045; 74177; 80048; 80053; 81001; 82272; 82728; 82803; 83540; 83550; 83605; 83735; 84100; 84478; 84484; 85014; 85018; 85025; 85027; 85045; 85520; 85610; 85730; 86850; 86900; 86901; 86923; 87040; 87070; 87075; 87205; 88307; 93005; 93010; 94660; 94760; 94762; 96361; 96365-59; 96366; 96367; 96368; 96375; 97110; 97116; 97162; 97166; 97530; 97535; 99285-25; A9270; C1751; C9113; G0378; J0612; J1100; J1644; J1650; J1885; J2405; J2543; J2704; J2916; J3010; J3411; J3475; J3480; J7030; J7050; J7060; J7120; J7131; P9016; P9047; Q9967